=== PATIENT | female | born 1940 | race African-American/Black ===

== ENCOUNTER → 2016-06-18 | Outpatient (CLI) | payer OTHER, MEDICAID ==
[2016-01-15 11:55] VITALS: BP 128/69
[~2016-06-18] MED LIST: ASPI81TA2 PO; BACL10TA PO; BENZ100C2 PO; CYAN10002 PO; FLUT9.9S NS; LIPA1CAP14 PO; LISI-334 PO; MELO-150 PO; MONT10TA9 PO; OMEP20CA9 PO; PANT20TA2 PO; REGADENOSON 0.4 MG/5 ML DISP.SYRIN. IV ONE; VENTOLIN HFA18 GM INH
--- NOTE | 2016-06-18 15:04 | RAD ---
APPROVED REPORT Test Type: Pharmacological Stress Nurse/Tech: AVILA Story Test Indications: dyspnea, arm/leg numbness Cardiac History: See EMAR Medications: See EMAR Medical History: smoker 1-2 cigs/day Resting ECG: SR Resting Heart Rate: 72 bpm Resting Blood Pressure: 155/71mmHg Pretest Chest Pain: No chest pain Nurse/Tech Notes SR per monitor, S1S2, no CP or SOA Pharm. Details Pharmacologic stress testing was performed using 0.4mg per 5ml of regadenoson given intravenously ove r 7-10 seconds. Stress Symptoms No chest pain or symptoms. POST EXERCISE Reason for Termination: Infusion complete Max HR: 92 bpm Max Blood Pressure: 170/77mmHg Chest Pain: No. Arrhythmia: No. ST Change: No. INTERPRETATION Stress EKG Conclusion: No evidence of stress induced EKG changes. Baseline with lateral wall q-waves. Imaging Protocol IMAGE PROTOCOL: Rest Tc-99m/stress Tc-99m 1 day Rest: Stress: Viability: Radiopharm.Tc99m BdzgcmdpoWl65l Sestamibi Dose10.4mCi 33mCi Img Date 06/18/2016 06/18/2016 Inj-Img [id number]. 60min. Rest Admin Site:IV - Right AntecubitalAdministrator:Livia Shoemaker RT (R)(N) Stress Admin Site: IV - Right AntecubitalAdministrator: MELANIE Cali, ARRT (R)(N) STRESS DATA End Diast. Vol.67.0mlAv. Heart Rate78.0bpm End Syst. Vol.18.0mlCO Index BSA0.0L/min Myocardial Gfgr279.0gEject. Hlkncnxq45.0% Stress Rates Pk. Fill Rate3.41EDV/secLVtime Pk. Fill 231.92msec Pk. Empty Rate4.20ESV/secLVtime Pk. Afzqa679.07msec 03/05 Pk. Fill0.43EDV/sec Stress Scores Regional WT2.00Summed WT15.00 Regional WM0.00Summed WM1.00 LV Perfusion There is a large sized, severe in intensity inferolateral defect suggestive of prior infarct. There i s minimal kapil-infarct reversibility. Wall Motion Mild to moderate inferolateral hypokinesis. LV Perf. Quant 17 Seg. SSS11.00 17 Seg. SRS9.00 17 Seg. SDS3.00 Stress Defect Extent (% LAD)0.00Rest Defect Extent (% LAD)0.00Rev. Defect Extent (% LAD)0.00 Stress Defect Extent (% LCX) 57.50Rest Defect Extent (% LCX)58.80Rev. Defect Extent (% LCX)15.00 Stress Defect Extent (% RCA)16.70Rest Defect Extent (% RCA)4.40Rev. Defect Extent (% RCA)10.00 Stress Defect Extent (% ROSA)18.50Rest Defect Extent (% ROSA)15.20Rev. Defect Extent (% ROSA)5.90 Other Information Quality:Excellent Risk Assessment: Low-Moderate Risk Conclusion 1. No evidence of stress induced EKG changes. 2. Fixed inferolateral defect suggestive of prior infarct with minimal kapil-infarct reversibility 3. Normal EF at > 65% 4. Low to moderate risk study
--- NOTE | 2016-06-19 08:27 | CARD ---
APPROVED REPORT EXAM: Two-dimensional and M-mode echocardiogram with Doppler and color Doppler. Other Information Quality : GoodHR: 72bpm Rhythm : NSR INDICATION Dyspnea on exertion RISK FACTORS Hypertension Family History Smoking 2D DIMENSIONS RVDd2.5 (2.9-3.5cm)Left Atrium(2D)2.9 (1.6-4.0cm) IVSd0.9 (0.7-1.1cm)Aortic Root(2D)3.2 (2.0-3.7cm) LVDd4.5 (3.9-5.9cm)LVOT Diameter2.4 (1.8-2.4cm) PWd0.8 (0.7-1.1cm)LVDs3.7 (2.5-4.0cm) FS (%) 18.9 %SV36.6 ml LVEF(%)39.1 (>50%) Aortic Valve AoV Peak Can.118.4cm/sAoV VTI22.9cm AO Peak GR.5.6mmHgLVOT Peak Can.91.0cm/s AO Mean GR.3mmHgAVA (VMAX)3.56cm2 AI P 1/2 Dcco514eq Mitral Valve MV E Xeodntgx53.7cm/sMV E Peak Gr.3mmHg MV DECEL KKPH937bvON A Hcxpodpf10.0cm/s MV E Mean Gr.1mmHgE/A Ratio0.6 MV A Exsbklcx89zt Tricuspid Valve TR P. Hwyyigwn420dw/sTR Peak Gr.53mmHg Pulmonary Vein S1 Jyrvzqss26.2cm/sD2 Tetzziej23.4cm/s PVa hovweeyd31gpop LEFT VENTRICLE The left ventricle is normal size. There is normal left ventricular wall thickness. Left ventricle sy stolic function is low normal. The Ejection Fraction is 50-55%. There is normal LV segmental wall mot ion. Transmitral Doppler flow pattern is Grade I-abnormal relaxation pattern. No left ventricle throm bus noted on this study. RIGHT VENTRICLE The right ventricle is normal size. There is normal right ventricular wall thickness. The right ventr icular systolic function is normal. ATRIA The left atrium size is normal. The right atrium size is normal. The interatrial septum is intact wit h no evidence for an atrial septal defect or patent foramen ovale as noted on 2-D or Doppler imaging. AORTIC VALVE The aortic valve is thickened. The aortic valve is trileaflet. Doppler and Color Flow revealed mild a ortic regurgitation. There is no significant aortic valvular stenosis. MITRAL VALVE The mitral valve leaflets are thickened. There is no evidence of mitral valve prolapse. There is no m itral valve stenosis. Doppler and Color Flow revealed mild mitral regurgitation. TRICUSPID VALVE Doppler and Color Flow revealed mild tricuspid regurgitation. The pulmonary artery systolic pressure is estimated at 56 mmHg. There is moderate pulmonary hypertension. PULMONIC VALVE Doppler and Color Flow revealed mild pulmonic valvular regurgitation. There is no pulmonic valvular s tenosis. GREAT VESSELS The aortic root is normal in size. The ascending aorta is normal in size. The IVC is normal in size a nd collapses >50% with inspiration. PERICARDIAL EFFUSION There is no evidence of significant pericardial effusion. Critical Notification Critical Value: No <Conclusion> Left ventricle systolic function is low normal. The Ejection Fraction is 50-55%. There is normal LV segmental wall motion. Doppler and Color Flow revealed mild aortic regurgitation. Doppler and Color Flow revealed mild mitral regurgitation. Doppler and Color Flow revealed mild tricuspid regurgitation. The pulmonary artery systolic pressure is estimated at 56 mmHg. There is moderate pulmonary hypertension.
== END | disposition home or self-care (01) ==
LOC: NM 09:57
PROVIDERS: ATTEND Internal Medicine Cardiovascular Disease
DX: R06.09 Other forms of dyspnea (principal)
CPT/HCPCS: 78452; 93017; 93306; 96374; 96375; 96376; A9500; J2785

== ENCOUNTER → 2016-06-25 | Outpatient (CLI) | payer OTHER, MEDICAID ==
[2016-01-15 11:55] VITALS: BP 128/69
[~2016-06-25] MED LIST changes: -REGADENOSON 0.4 MG/5 ML DISP.SYRIN. IV ONE
--- NOTE | 2016-06-25 18:18 | RAD ---
APPROVED REPORT Patient Location: OUT-PATIENT Laterality:Bilateral Indications Bruit Risk Factors Smoking Doppler Spectral Velocity Analysis Right Left mCCA 50/10 cm/smCCA 58/10 cm/s ECA 95/ cm/sECA 125/ cm/s pICA 205/37 cm/spICA 300/48 cm/s Debi 244/33 cm/smICA 81/11 cm/s dICA 79/21 cm/sdICA 82/19 cm/s ICA/CCA 4.88ICA/CCA 5.14 Findings Pereira scale images of the bilateral carotid arterial bulbs, internal carotid and external carotid arianne chip reveals diffuse intimal hyperplasia of mild to moderate degree. There appears to be moderate art hroscopic plaque at the bilateral carotid bulbs extending into the internal carotid arteries. Spectral waveforms in the common carotid artery are within normal limits bilaterally. On the right, t he proximal and mid internal carotid artery mistreat elevated velocities of up to 244 cm/s. The MCA t o CCA ratios are elevated at greater than 4. On the left spectral waveforms demonstrate elevated peak systolic velocities are proximally 300 cm/s near the proximal ICA. Based on pereira scale images and co james flow there appears to be tortuosity of the carotid bulbs bilaterally but the degree of velocity e levation is higher than would be expected for tortuosity only. Bilateral antegrade vertebral velocities are noted. Critical Notification Critical Value: No <Conclusion> 1. Bilateral significant greater than 70% stenosis involving the proximal internal carotid artery. 2. Normal antegrade vertebral velocities.
--- NOTE | 2016-06-25 18:26 | RAD ---
APPROVED REPORT Patient Location: OUT-PATIENT Indications PAD VELOCITY AND DOPPLER WAVEFORM ANALYSIS RIGHT cm/secWaveformSeverity LEFT c m/secWaveformSeverity pCFA 165.1pCFA 273.6 Prof Fem Art. 186.3Prof Fem Art. 142.0 Fem Art Prox. 163.1Fem Art Prox. 108.2 Fem Art Mid. 72.0Fem Art Mid. 118.2 Fem Art Dist. 93.3Fem Art Dist. 77.5 Pop Art(Fossa) 69.1Pop Art(Fossa) 37.6 ZIPPER SETTER LOCKSTITCH Dist. 11.1PTA Dist. 51.2 Per Art Dist. 30.6Per Art Dist. 54.8 SHARA Dist. 63.6ATA Dist. 34.4 Findings On the right ellis scale images demonstrate significant atherosclerotic plaque of approximately 50%. V elocities are elevated at 165 cm/s. The plaque extends into the superficial femoral and profunda femo ris arteries. The mid and distal SFA are free of significant disease and the popliteal artery is slig htly tortuous but does not have any significant velocity acceleration or turbulence noted on color Do ppler. The right posterior tibial artery is not well identified. It is likely occluded. There is dimi nished flow in the anterior tibial and peroneal vessels but they appear to be patent with acceleratio n in velocity at the level of the dorsalis pedis suggestive of diffuse small vessel disease. On the left the proximal common femoral artery velocities are elevated and ellis scale images are also suggestive of plaque greater than 50%. Mild to moderate diffuse plaque is noted in the SFA and popli teal arteries of likely less than 50%. There is patent 3 vessel runoff below the knee with monophasic waveforms again suggestive of diffuse small vessel disease. Critical Notification Critical Value: No <Conclusion> 1. Suspicious for bilateral common femoral arterial disease of greater than 50%. 2. Probable right posterior tibial artery occlusion. 3. Two-vessel runoff to the right lower extremity and 3 vessel runoff to the left lower extremity wit h likely diffuse small vessel disease.
== END | disposition home or self-care (01) ==
LOC: US 11:55
PROVIDERS: ATTEND Internal Medicine Cardiovascular Disease
DX: I73.9 Peripheral vascular disease, unspecified (principal); R09.89 Other specified symptoms and signs involving the circulatory and respiratory systems
CPT/HCPCS: 93880; 93925

== ENCOUNTER 2016-07-01 07:34 | Inpatient (IN) | payer OTHER, MEDICAID ==
[2016-07-01] VITALS (19 sets, daily range): BP systolic 71–200; BP diastolic 42–100
[~2016-07-01] VITALS: Ht 154.9 cm; Wt 50.4 kg
[2016-07-01] MEDS: IV NORMAL SALINE 1000ML BAG 1,000 ML IV SCH (07:39)
[2016-07-01] MEDS ORDERED: IODIXANOL 320 MG/ML 100 ML VIAL. ONE ×2 (08:06→10:43)
[2016-07-01] MEDS ORDERED: LIDOCAINE 2% 20 ML VIAL. ONE ×2 (08:06→09:52)
[2016-07-01] MEDS ORDERED: TRAM50TA PO (08:08)
[2016-07-01] MEDS ORDERED: LIPA1CAP8 PO (08:08)
[2016-07-01] MEDS ORDERED: OMEG1CAP6 PO (08:08)
[2016-07-01] MEDS ORDERED: BUDE10.2 IH (08:08)
[2016-07-01] MEDS ORDERED: ASCO500T3 PO (08:08)
[2016-07-01 08:09] LABS: HEMATOCRIT 34.9 % (36.0-47.0); HEMOGLOBIN 11.5 g/dL (12.0-15.5); RED BLOOD COUNT 3.94 x10^6/uL (3.50-5.40); RED CELL DISTRIBUTION WIDTH 14.6 % (11.5-14.5); WHITE BLOOD COUNT 4.3 x10^3/uL (4.0-11.0)
[2016-07-01 08:21] LABS: CALCIUM 9.3 mg/dL (8.5-10.1); CREATININE 0.9 mg/dL (0.6-1.0); GFR 74.1; POTASSIUM 3.7 mmol/L (3.5-5.1); PROTHROMBIN TIME PATIENT 12.7 SEC (11.7-14.0)
[2016-07-01] MEDS ORDERED: MIDAZOLAM HCL/PF 2 MG/2 ML VIAL. ONE (09:55)
[2016-07-01] MEDS ORDERED: fentaNYL PF VIAL 100 MCG/2 ML VIAL ONE (09:56)
[2016-07-01] MEDS ORDERED: NITROGLYCERIN 200 MCG/2 ML SYRINGE FOR CATH/VASC LAB. ONE (10:01)
[2016-07-01] MEDS ORDERED: VERAPAMIL 5 MG/2 ML VIAL. ONE (10:01)
[2016-07-01] MEDS ORDERED: HEPARIN for IV BOLUS 10,000 UNIT/10 ML VIAL. ONE (10:01)
[2016-07-01] MEDS ORDERED: LIDOCAINE 2% 20 ML VIAL. IJ ONE (10:15)
[2016-07-01] MEDS ORDERED: MIDAZOLAM HCL/PF 2 MG/2 ML VIAL. IV ONE (10:15)
[2016-07-01] MEDS ORDERED: IODIXANOL 320 MG/ML 100 ML VIAL. IART ONE (10:15)
[2016-07-01] MEDS ORDERED: fentaNYL PF VIAL 100 MCG/2 ML VIAL IV ONE (10:15)
[2016-07-01] MEDS ORDERED: BIVALIRUDIN 250 MG VIAL. IV ONE ×2 (10:21→10:45)
[2016-07-01] MEDS ORDERED: CLOPIDOGREL BISULFATE 75 MG TABLET ONE (10:45)
[2016-07-01] MEDS ORDERED: ASPIRIN 325 MG TABLET ONE (10:45)
[2016-07-01] MEDS ORDERED: ASPIRIN 325 MG TABLET PO ONE (11:00)
[2016-07-01] MEDS ORDERED: CLOPIDOGREL BISULFATE 75 MG TABLET PO ONE (11:00)
--- NOTE | 2016-07-01 12:08 | CARD ---
APPROVED REPORT Procedure(s) performed: 1. Left heart catheterization, selective coronary angiography and left ventr iculography 2. Successful PCI/drug eluting stent placement to the obtuse marginal branch of left circumflex arianne ry INDICATION The indication(s) include : unstable angina . PROCEDURE NARRATIVE After explaining the risks, benefits and alternative options, informed consent was obtained from galina ent. Patient was brought to the cardiac Escalator Constructor and her right groin was prepped and draped in the us ual fashion. 10 mL of 2% lidocaine was infiltrated into the skin and subcutaneous tissues for local a nesthesia. Arterial access was obtained in the right common femoral artery and a 6 Malagasy sheath was inserted. 6 Malagasy JL4 and 6 Malagasy JR4 catheters were used to perform selective angiography of the l eft and right coronary arteries. 6 Malagasy pigtail catheter was used to perform left ventriculography. The same catheter was used to perform aortogram with runoff that revealed be reported separately. Th e following findings were noted. FINDINGS 1. Hemodynamics: Left ventricular end-diastolic pressure 10 mmHg. No pullback gradient across the a ortic valve. 2. Left ventriculography: Posterobasal wall akinesis with ejection fraction estimated at 55%. No si gnificant mitral regurgitation seen. 3. Coronary angiography: a. The left main coronary artery arose from the left sinus of Valsalva, gave rise to the left anteri or descending and left circumflex arteries and did not show any significant stenosis. b. The left anterior descending artery showed minimal luminal irregularities without any significant stenosis. c. The left circumflex artery showed 90% stenosis involving the second obtuse marginal branch. The p roximal to midsegment of the left circumflex artery is highly tortuous. d. The right coronary artery arose from the right sinus of Valsalva and showed long chronic and heav margie calcified occlusion involving proximal, mid and distal segments with reconstitution of the informatica developer ior descending and posterolateral branches from left to right collaterals. INTERVENTION The left main coronary artery was engaged with a 6 Malagasy XB 3.5 guide catheter. The proximal to mids egment of the left circumflex artery was highly tortuous as stated above and hence there was difficul ty passing the wire across this initially. Subsequently, with the help of backup support from a 6 Fito formerly [facility] guide liner catheter, the lesion in the second obtuse marginal branch was crossed with a 0.014 in ch [employer] pool water guidewire, predilated with a 2 x 8 mm trek balloon and treated successfully with a 2.5 x 8 mm Xience Alpine drug-eluting stent. Follow-up angiography showed resolution of the stenosi s to 0% with STEVE-3 distal flow. Patient tolerated the procedure well. Hemostasis in the right groin was achieved using Angio-Seal. There were no immediate complications. Conclusion 1. Two-vessel coronary artery disease 2. Successful PCI/drug eluting stent placement to the obtuse marginal branch of left circumflex arianne ry 3. Posterobasal wall akinesis with ejection fraction estimated at 55%. Recommendations 1. Aspirin 325 mg daily 2. Plavix 75 mg daily for preferably one year 3. Cardiovascular risk factor modification 4. The right coronary artery occlusion is long, heavily calcified and chronic and will be managed me dically.
[2016-07-01] MEDS ORDERED: hydrALAZINE 20 MG/ML VIAL. IVP PRN (13:00)
[2016-07-01] MEDS ORDERED: ASPIRIN ENTERIC COATED 325 MG TABLET.DR. PO SCH (13:00)
[2016-07-01] MEDS ORDERED: CLOPIDOGREL BISULFATE 75 MG TABLET PO SCH (13:00)
[2016-07-01] MEDS ORDERED: LISINOPRIL 10 MG TABLET PO SCH (13:00)
--- NOTE | 2016-07-01 13:04 | PDOC ---
MODERATE SEDATION ASSESSMENT RISKS/ALTERNATIVES Risks/Alternatives Risks and alternatives of this type of sedation and procedure discussed with: RISK/ALTERNATIVES: Patient H & P ON CHART H & P H & P on chart and reviewed for co-morbid conditions and appropriate labs. H&P ON CHART: Yes STATUS PREG STATUS ASSESSED: N/A MEDS/ALLERGIES REVIEWED Meds/Allergies Reviewed Medications and Allergies including time and route of recently administered narcotics and sedatives. MEDS/ALLERGIES REVIEWED: Yes ASA RATING ASA RATING: II AIRWAY ASSESSMENT Airway Assessment Airway patency, oral function limitations, presence of caps, crowns, dentures, partials, and ability to extend neck assessed. AIRWAY ASSESSMENT: Yes MALLAMPATI SCORE MALLAMPATI SCORE: II PRE-SEDATION ASSESSMENT PRE-SEDATION ASSESSMENT: Yes DIGNA RUSSO MD July 01, 2016 13:03
[2016-07-01] MEDS: METOPROLOL SUCC 24HR ER 25 MG TAB.ER.24H. PO SCH (13:08)
--- NOTE | 2016-07-01 13:45 | CARD ---
APPROVED REPORT Patient StatusOUT-PATIENT Comfort Station Attendant: Omaira Hodge RT (R) Procedure(s) performed: Aortogram with bilateral lower extremity runoff INDICATION FOR PROCEDURE The indication(s) include : Peripheral vascular disease with claudication. PROCEDURE NARRATIVE After explaining the risks, benefits and alternative options, informed consent was obtained from lida ent. Patient was brought to the cardiac Podiatric Physician and her right groin was prepped and draped in the us ual fashion. 10 mL of 2% lidocaine was infiltrated into the skin and subcutaneous tissues for local a nesthesia. Arterial access was obtained in the right common femoral artery and 6 Israeli sheath was in serted. Diagnostic coronary angiography was performed that would be reported separately. Subsequently , 6 Israeli pigtail catheter was used to perform aortogram with bilateral lower extremity runoff. Lida ent tolerated the procedure well. Hemostasis was achieved using Angio-Seal. There were no immediate c omplications. FINDINGS 1. 30% stenosis involving the descending aorta in the infrarenal segment. 2. 30% stenosis involving left common iliac artery. No significant stenosis involving the right comm on iliac and bilateral external iliac arteries. 3. No significant stenosis involving bilateral common femoral arteries. 4. 30% stenoses involving the mid and distal segments of the left superficial femoral artery. No sig nificant stenosis involving the right superficial femoral artery and bilateral popliteal arteries. 5. There is two vessel runoff below the knee bilaterally with complete occlusion of bilateral buffing machine operator ior tibial arteries. The left anterior tibial artery showed moderate diffuse disease in the proximal segment. Conclusion Elrlm-peu-tmoh peripheral vascular disease as described above. Patient did not have any major vascula r stenoses needing intervention. Recommendations Cardiovascular risk factor modification and regular exercise regimen.
[2016-07-01] MEDS: IV 1/2 NORMAL SALINE 1,000 ML IV SCH (15:31)
[2016-07-01] MEDS ORDERED: NITROGLYCERIN SUBLINGUAL 0.4 MG BOTTLE OF 25. SL PRN (15:45)
[2016-07-01] MEDS ORDERED: ACETAMINOPHEN 325 MG TABLET. PO PRN (15:45)
[2016-07-01] MEDS ORDERED: TRAMADOL 50 MG TABLET. PO PRN (19:15)
[2016-07-01] MEDS ORDERED: ATORVASTATIN CALCIUM 40 MG TABLET. PO SCH (21:00)
[2016-07-02] MEDS: IV NORMAL SALINE 1000ML BAG 1,000 ML IV SCH (01:43)
[2016-07-02 03:00] VITALS: BP 116/59
[2016-07-02] MEDS: IV 1/2 NORMAL SALINE 1,000 ML IV SCH (04:51)
[2016-07-02 05:12] LABS: CHOLESTEROL/HDL RATIO 2.2
--- NOTE | 2016-07-02 05:17 | ACF ---
Admission Forms Criteria CARDIOLOGY GRG Clinical Indications for Admission to Inpatient Care ( Place 'X' for any and all applicable criteria): Hospital admission is needed for appropriate care of the patient because of ANY ONE of the following (1): [ ] I. Hemodynamic instability as indicated by ALL of the following (1)(2)(3) (4)(5) [ ]a) Vital signs or other findings not as expected for chronic patient condition or baseline [ ]b) Instability indicated by ANY ONE of the following: [ ]i) Hypotension [ ]ii) Symptomatic Tachycardia unresponsive to treatment ( e.g., analgesia, fluids, sedation as indicated) [ ]iii) Inadequate perfusion indicated by ANY ONE of the following: [ ] 1) Lactic acidosis (> 2 mmol/L) [ ] 2) New abnormal capillary refill (> 3 seconds) [ ] 3) Reduced urine output [ ] 4) New altered mental status [ ]iv) Orthostatic vital sign changes unresponsive to treatment (e.g., fluids) [ ]v) IV inotropic or vasopressor medication required to maintain adequate blood pressure or perfusion [ ] II. Severe heart failure as indicated by ANY ONE of the following(17)(18) [ ]a) Respiratory distress [ ]b) Hypotension [ ]c) Anasarca (refractory to outpatient therapy) [ ]d) Cardiac arrhythmias of immediate concern [ ]e) Myocardial ischemia [ ] III. Cardiac arrhythmias or findings of immediate concern indicated by ANY ONE of the following (19)(20): [ ] a) Heart rhythms that are inherently dangerous or unstable indicated by ANY ONE of the following (21)(22)(23): [ ] i) Resuscitated ventricular fibrillation or cardiac arrest [ ] ii) Ventricular escape rhythm [ ] iii) Sustained ventricular tachycardia (30 seconds or more of ventricular rhythm at greater than 100 beats per minute) [ ] iv) Nonsustained ventricular tachycardia and ANY ONE of the following: [ ] 1) Suspected cardiac ischemia as cause or consequence of ventricular tachycardia [ ] 2) In setting of acute myocarditis [ ] b) Unstable cardiac conduction defects indicated by ANY ONE of the following(23)(24)(25) [ ] i) Type II second-degree atrioventricular block [ ]ii) Third-degree atrioventricular block [ ]iii) New-onset left bundle branch block with suspected myocardial ischemia [ ]c) Any heart rhythm and ANY ONE of the following (21)(22)(26)(27) (28) [ ] i) Continuous long-term ECG monitoring needed (e.g., initiation of drug requiring monitoring for more than 24 hours) [ ] ii) Patient has automatic implanted cardioverter defibrillator that is repeatedly firing, malfunctioning, or in need of immediate adjustment of settings beyond the scope of ambulatory or observation care [ ]d) Heart rhythms of concern due to ANY ONE of the following: [ ] i) Hypotension [ ] ii) Respiratory distress [ ] iii) Association with other significant symptoms (e.g., bradycardia with syncope or ongoing dizziness, supraventricular tachycardia with chest pain (14)(15)(17) [ ] IV. Monitoring for cardiac contusion beyond the scope of observation care needed [A](30)(31)(32) [ ] V. Surgical or device complication (e.g., valve replacement complication , pacemaker dysfunction) (35)(41)(44)(45)(46) [ ] . Inpatient palliative care needed. [B](49) Also use Inpatient Palliative Care Criteria [ ] VII. Nonbacterial thrombotic (marantic) endocarditis (36)(43)(47)(48) [X] VIII. Cardiology condition, symptom, or finding for which emergency and observation care has failed or are not considered appropriate. [ ] IX. Acute valvular disease requiring inpatient as indicated by ANY ONE of the following (41) [ ]a) Acute valvular regurgitation (42) [ ]b) Noninfectious valvulitis (43) [ ]c) Obstructive valve thrombosis [ ]d) Paravalvular leak [ ]e) Other significant valvular disorder remaining after emergency or observation level of care (as appropriate) [ ]X. Pericardial disease requiring inpatient treatment as indicated by ANY ONE of the following (33)(34)(35)(36)(37) [ ]a) Suspected tamponade (38)(39)(40) [ ]b) Hemopericardium [ ]c) Other significant pericardial disorder remaining after emergency or observation level of care (as appropriate) [ ] XI. Cardiac ischemia beyond scope of emergency and observation care. [ ] XII. Hypertension requiring inpatient treatment as indicated by ANY ONE of the following (6)(7)(8) [ ]a) SBP greater than 220 mm Hg or DBP greater than 120 mmHg despite treatment [ ]b) SBP greater than 140 mm Hg or DBP greater than 100 mm Hg with evidence of acute end organ damage as indicated by ANY ONE of the following [ ] i) Encephalopathy [ ] ii) Acute renal failure as indicated by new onset of ANY ONE of the following (9)(10)(11)(12)(13) [ ]1) 3-fold rise in serum creatinine from baseline [ ]2) Serum creatinine greater than 4 mg/dL ( 354 micromoles/L) with acute rise greater than 0.5 mg/dL (44.2 micromoles/L) [ ]3) Reduction of more than 75% in estimated glomerular filtration rate from baseline [ ]4) Estimated glomerular filtration rate less than 35 mL/min/1.73m2 (0.59 mL/sec/1.73m2) in child up to 18 years of age [ ]5) Cessation of urine output indicated by ALL of the following [ ]A. Adequate volume status [ ]B. Inadequate urine output as indicated by ANY ONE of the following [ ]a. Urine output less than 0.3 mL/kg/hr for 24 hours [ ]b. Anuria (urine output less than 0.1 mL/kg/hr) for 12 hours [ ] iii) Aortic dissection [ ] iv) Myocardial Ischemia [ ] v) Left ventricular heart failure [ ]vi) Retinal Hemorrhage [ ]vii) Other significant finding [ ]c) Hypertension in child requiring inpatient treatment as indicated by ALL of the following(14)(15)(16) [ ] i) Outpatient treatment not effective, not available, or not appropriate [ ]ii) SBP or DBP greater than 95th percentile for age [ ]iii) Evidence of acute end organ damage as indicated by ANY ONE of the following [ ]1) Altered mental status [ ]2) Acute renal failure as indicated by new onset of ANY ONE of the following(9)(10)(11)(12)(13) [ ]A. 3-fold rise in serum creatinine from baseline [ ]B. Serum creatinine greater than 4 mg/dL (354 micromoles/L) with acute rise greater than 0.5 mg/dL (44.2 micromoles/L) [ ]C. Reduction of more than 75% in estimated glomerular filtration rate from baseline [ ]D. Estimated glomerular filtration rate less than 35 mL/min/1.73m2 (0.59 mL/sec/1.73m2) in child up to 18 years of age [ ]E. Cessation of urine output indicated by ALL of the following [ ]a. Adequate volume status [ ]b. Inadequate urine output as indicated by ANY ONE of the following [ ]i) Urine output less than 0.3 mL/kg/hr for 24 hours [ ]ii) Anuria ( urine output less than 0.1 mL/kg/hr) for 12 hours [ ]3) Severe headache [ ]4) Visual disturbance [ ]5) Retinal hemorrhage [ ]6) Other significant finding [ ]XIII. Complications of transplanted heart indicated by ANY ONE of the following(61): [ ]a) Acute graft rejection requiring inpatient management (eg, intravenous immunosuppression)(62)(63) [ ]b) Acute graft heart failure indicated by ANY ONE of the following(64): [ ]i) Hemodynamic instability [ ]ii) Cardiac arrhythmias of immediate concern [ ]iii) Pulmonary edema that is very severe (eg, mechanical ventilation needed, imminent or likely, need for 100% oxygen to keep oxygen saturation above 90%) [ ]iv) Pulmonary edema that is persistent as indicated by ALL of the following: [ ]1) New need for oxygen therapy to keep oxygen saturation above 90% (or increased FiO2 need from baseline) [ ]2) Has not improved sufficiently with emergency department or observation care IV diuretics or other heart failure treatments[E] [ ]v) Altered mental status that is severe or persistent [ ]vi) Increased creatinine (new on laboratory test) with reduction of more than 50% in estimated glomerular filtration rate from baseline [ ]vii) Progressively (ongoing) rising creatinine (known from past laboratory test) with reduction of more than 25% in estimated glomerular filtration rate from baseline [ ]viii) Acute renal failure [ ]ix) Acute peripheral ischemia (eg, examination shows pulseless, cool, mottled, or cyanotic extremity) [ ]x) Pulmonary artery catheter monitoring needed [ ]xi) Other sign or symptom of heart failure requiring inpatient treatment (ie, too severe or not responsive to outpatient and observation care treatment) [ ]c) Infection requiring inpatient management (eg, Hemodynamic instability, need for intravenous antimicrobial treatment)(66)(67)(68)(69)(70) [ ]d) Cardiac allograft vasculopathy requiring inpatient management ( eg evidence of cardiac ischemia)(71) [ ]e) Other complication of transplanted heart (eg, stroke, severe pulmonary hypertension, severe valvular dysfunction) requiring inpatient management(72) The original [facility] content created by [facility] has been revised. The portions of the content which have been revised are identified through the use of italic text or in bold, and [facility] has neither reviewed nor approved the modified material. All other unmodified content is copyright [facility]. Please see references footnoted in the original [facility] edition 2016 Admission Criteria Met?: Yes DILLON BRYANT July 02, 2016 05:17
[2016-07-02 07:00] VITALS: BP 129/59
[2016-07-02] MEDS ORDERED: ASPIRIN ENTERIC COATED 325 MG TABLET.DR. PO SCH (08:00)
[2016-07-02] MEDS ORDERED: CLOPIDOGREL BISULFATE 75 MG TABLET PO SCH (08:00)
[2016-07-02] MEDS: METOPROLOL SUCC 24HR ER 25 MG TAB.ER.24H. PO SCH (08:56)
[2016-07-02 11:00] VITALS: BP 142/42
[2016-07-02] MEDS ORDERED: ASPI325T11 PO (11:20)
[2016-07-02] MEDS ORDERED: METO25TA9 PO (11:20)
[2016-07-02] MEDS ORDERED: ATOR40TA PO (11:20)
[2016-07-02] MEDS ORDERED: CLOP75TA PO (11:20)
--- NOTE | 2016-07-02 15:14 | PDOC3 ---
Discharge Summary Visit Information Date of Admission: July 01, 2016 Date of Discharge: July 02, 2016 Admitting Diagnosis Comment: Dyspnea Final Diagnosis CAD Brief Hospital Course Allergies Allergies Coded Allergies Type Severity Reaction Last Updated Verified lisinopril Allergy Severe Swelling 07/01/16 Yes Penicillins Allergy Intermediate 01/15/16 Yes codeine Allergy Intermediate 01/15/16 Yes Vital Signs Vital Signs Date Time Temp Pulse Resp B/P Pulse Ox O2 Delivery O2 Flow Rate FiO2 07/02/16 11:00 98.1 71 18 142/42 93 Room Air 98.1 07/01/16 12:48 2.0 Lab Results Laboratory Tests Test 07/01/16 07:59 07/02/16 03:00 White Blood Count 4.3x10^3/uL (4.0-11.0) Red Blood Count 3.94x10^6/uL (3.50-5.40) Hemoglobin 11.5g/dL (12.0-15.5) Hematocrit 34.9% (36.0-47.0) Mean Corpuscular Volume 89fL (79-100) Mean Corpuscular Hemoglobin 29pg (25-35) Mean Corpuscular Hemoglobin Concent 33g/dL (31-37) Red Cell Distribution Width 14.6% (11.5-14.5) Platelet Count 314x10^3/uL (140-400) Prothrombin Time 12.7SEC (11.7-14.0) Prothromb Time International Ratio 1.0 (0.8-1.1) Sodium Level 131mmol/L (136-145) Potassium Level 3.7mmol/L (3.5-5.1) Chloride Level 95mmol/L (98-107) Carbon Dioxide Level 28mmol/L (21-32) Anion Gap 8 (6-14) Blood Urea Nitrogen 10mg/dL (7-20) Creatinine 0.9mg/dL (0.6-1.0) Estimated GFR (Cockcroft-Gault) 74.1 Glucose Level 102mg/dL (70-99) Calcium Level 9.3mg/dL (8.5-10.1) Triglycerides Level 58mg/dL (0-150) Cholesterol Level 228mg/dL (0-200) LDL Cholesterol, Calculated 111mg/dL (0-100) VLDL Cholesterol, Calculated 12mg/dL (0-40) Non-HDL Cholesterol Calculated 123mg/dL (0-129) HDL Cholesterol 105mg/dL (40-60) Cholesterol/HDL Ratio 2.2 Laboratory Tests Test 07/02/16 03:00 Triglycerides Level 58mg/dL (0-150) Cholesterol Level 228mg/dL (0-200) LDL Cholesterol, Calculated 111mg/dL (0-100) VLDL Cholesterol, Calculated 12mg/dL (0-40) Non-HDL Cholesterol Calculated 123mg/dL (0-129) HDL Cholesterol 105mg/dL (40-60) Cholesterol/HDL Ratio 2.2 Brief Hospital Course Ms. Hackett is a 76 old female who presented to our office with complaints of dyspnea upon exertion. Patient underwent 2-D that revealed normal LV function and MPI, which revealed a fixed inferolateral defect suggestive of prior infarct with minimal kapil-infarct reversibility. Due to significant symptomatic dyspnea, cardiac catheterization was recommended for more definitive evaluation. Risks, benefits, and alternatives were explained and she was agreeable. Left heart catheterization, selective coronary angiography and left ventriculography was performed, which revealed two-vessel disease. Patient underwent successful PCI/drug eluting stent placement to the obtuse marginal branch of left circumflex artery. Patient additionally underwent aortogram with bilateral lower extremity runoff, which reveal mild non-obstructive below-the- knee peripheral vascular disease. Arteriotomy site DCI with bilateral LE neurovascular status intact. Did well overnight without complications. No significant rhythm ectopies overnight on telemetry. Ambulatory without difficulty. No CP or SOA. Lungs CTA. She is begin DAPT with ASA 325mg and Plavix 75mg. No IVETTE/ARB with history of angioedema. Referred to cardiac rehab. Post cath instructions have also been reviewed. History of hypertension and COPD , which are well-controlled. Left carotid bruit noted with carotid duplex scan with 70% bilateral internal carotid artery stenosis. No TIA/CVA symptoms. Will schedule for CTA of the neck for further evaluation. Patient to follow up in our office with Dr. Cruz in 4 weeks. Discharge Information Condition at Discharge: Improved Follow Up: Weeks (4) Disposition/Orders: D/C to Home Scheduled Albuterol Sulfate (Ventolin Hfa Inhaler) 2 PUFF INH QID (Reported) Ascorbic Acid (Ascorbic Acid) 500 MG PO DAILY (Reported) Aspirin (Aspirin Ec) 1 TAB PO DAILY Atorvastatin Calcium (Lipitor) 40 TAB PO QHS Budesonide/Formoterol Fumarate (Symbicort 160-4.5 Mcg Inhaler) 2 PUFF IH BID ( Reported) Clopidogrel Bisulfate (Clopidogrel) 1 TAB PO DAILY Lipase/Protease/Amylase (Creon Dr 36,000 Units Capsule) 1 EACH PO TID (Reported ) Metoprolol Succinate (Metoprolol Succinate ( Xl )) 1 TAB PO DAILY [place]-3 Fatty Acids/Fish Oil (Fish Oil 1,000 Mg Capsule) 1 EACH PO BID (Reported ) Tramadol Hcl (Tramadol Hcl) 1 TAB PO PRN Q6HRS (Reported) Discontinued Medications Aspirin (Aspirin) 81 MG PO (Reported) Baclofen (Baclofen) 10 MG PO QID (Reported) Benzonatate (Benzonatate) 100 MG PO TID PRN PRN COUGH (Reported) Cyanocobalamin (Vitamin B-12) (Cyanocobalamin Injection) 2,000 MCG PO DAILY ( Reported) Fluticasone Propionate (Flonase Allergy Relief) 2 SPRAYS NS DAILY (Reported) Lipase/Protease/Amylase (Zenpep Dr 20,000 Units Capsule) 1 EACH PO (Reported) Lisinopril (Lisinopril) 20 MG PO DAILY (Reported) Meloxicam (Meloxicam) 15 MG PO DAILY PRN PRN PAIN (Reported) Omeprazole (Omeprazole) 1 CAP PO DAILY (Reported) Pantoprazole Sodium (Protonix) 1 TAB PO DAILY (Reported) Patient Instructions Patient Instructions GENERAL INSTRUCTIONS: 1. Your dressing should be removed prior to leaving the hospital. 2. It is OK to shower the day after your procedure. 3. If you received stents, be sure to carry your stent information card with you in your wallet/purse at all times. 4. Call the office immediately at [phone] if you notice any fever or if there is redness, worsening tenderness/pain, increased bruising, or drainage from the puncture site. 5. Should you have bleeding from the site, lie down immediately & put pressure on the site. The pressure should be hard enough to stop the bleeding. Have the nearest person call 911. DO NOT try to drive to the ER with active bleeding. 6. If you notice a change in color, coolness to touch, or loss of feeling in the affected extremity, come to the emergency room. Please have someone drive you or call 911 if no one is available. DO NOT drive yourself. 7. If you normally take glucophage (metformin), please do not take this medicine for 48 hours following your procedure. 8. DO NOT STOP TAKING YOUR PLAVIX OR ASPIRIN UNLESS IT IS CLEARED BY A WORK ENVIRONMENT SAFETY INSPECTOR OF YOUR MORTGAGE LOAN COUNSELOR AT OUR OFFICE. 9. QUIT SMOKING: the [place] [employer], [place] [employer], & [place] [employer] have cessation resources available on their websites 10. Please have someone available to drive you home from the hospital as you may be limited by sedation medications given during the procedure. Femoral (Groin) access: 1. Do no lifting, pushing, pulling, bending, stooping, or recurrent stair climbing for 3 days following your procedure. 2. Once past the first 3 days, do not do any HEAVY exertion or lifting for one week following the procedure. No gym workouts, running, lifting greater than a gallon of milk, etc 3. Do not submerge in bath or pool for one week. OK to drive 3 days following your procedure, but if going long distance, do not go alone & take hourly breaks to get out of car and walk around. Radial Artery (Wrist) access: 1. No pushing, pulling, lifting, typing, or anything that requires repetitive use/movement of the affected wrist for 3 days following your procedure. 2. OK to drive the day following your procedure. (This is because of effects of sedating medications.) Call the office at [phone] for any questions or concerns. RADHA PACE APRN July 02, 2016 15:14
== END 2016-07-02 13:30 | disposition home or self-care (01) | DRG 247 ==
LOC: CCL 07:34 → 2 NORTH 10:38
PROVIDERS: ADMIT Internal Medicine Cardiovascular Disease; ATTEND Internal Medicine Cardiovascular Disease
PROC: 027034Z Dilation of Coronary Artery, One Artery with Drug-eluting Intraluminal Device, Percutaneous Approach (ICD-10-PCS; principal; 2016-07-01)
PROC: 4A023N7 Measurement of Cardiac Sampling and Pressure, Left Heart, Percutaneous Approach (ICD-10-PCS; 2016-07-01)
PROC: B2151ZZ Fluoroscopy of Left Heart using Low Osmolar Contrast (ICD-10-PCS; 2016-07-01)
PROC: B2111ZZ Fluoroscopy of Multiple Coronary Arteries using Low Osmolar Contrast (ICD-10-PCS; 2016-07-01)
DX: I25.110 Atherosclerotic heart disease of native coronary artery with unstable angina pectoris (principal); I10 Essential (primary) hypertension; I65.23 Occlusion and stenosis of bilateral carotid arteries; I73.9 Peripheral vascular disease, unspecified; J44.9 Chronic obstructive pulmonary disease, unspecified; Z88.6 Allergy status to analgesic agent; Z88.0 Allergy status to penicillin; Z88.8 Allergy status to other drugs, medicaments and biological substances
CPT/HCPCS: 36415; 75630; 80048; 80061; 85027; 85610; 92928; 93458; C1725; C1769; C1771; C1874; C1887; C1892; G0269; J0360; J0583; J2250; J3010; J7030

== ENCOUNTER → 2016-08-16 | Outpatient (CLI) | payer OTHER, MEDICAID ==
[~2016-08-16] MED LIST changes: +ASCO500T3 PO; +ASPI-630 PO; +ASPI325T11 PO; -ASPI81TA2 PO; +ATOR40TA PO; +BENZ100C15 PO; -BENZ100C2 PO; +BUDE10.2 IH; +CLOP75TA PO; +IOHEXOL 300 MG/ML 75 ML VIAL IV ONE; +LIPA1CAP8 PO; -MELO-150 PO; +MELO15TA23 PO; +METO25TA9 PO; +OMEG1CAP6 PO; +TRAM50TA PO
--- NOTE | 2016-08-16 12:52 | RAD ---
CTA of the neck with contrast 08/16/2016 Clinical history: Left carotid bruit. Bilateral carotid stenosis seen on ultrasound. Technique: After the intravenous administration of 75 cc of Omnipaque 300, contiguous, 0.625 mm axial sections were obtained through the upper chest, and neck. 3D MIP and volume rendered 3D reconstructed images were obtained. One or more of the following individualized dose reduction techniques were utilized for this study: 1. Automated exposure control. 2. Adjustment of the mA and/or kV according to patient size. 3. Use of iterative reconstruction technique. Stenosis calculations for CTA are based upon the NASCET methodology. Findings: Comparison is made to a carotid ultrasound dated 06/25/2016. Moderate atherosclerotic plaque formation is seen involving the thoracic aortic arch and its branches. The origins of the brachiocephalic artery, left common carotid artery and left subclavian artery are patent. The origins of the right common carotid artery and both vertebral arteries are patent. Mild to moderate atheromatous/atherosclerotic plaque formation is seen scattered throughout the left common carotid artery. No area of stenosis or occlusion is seen. The right common carotid artery is patent. Moderate to severe atherosclerotic plaque formation is seen involving both carotid bifurcations and proximal internal carotid arteries, left greater than right. A 70% stenosis (using NASCET criteria) is seen involving the right carotid bulb at the level of the carotid bifurcation. This measures 4 mm in length. A 75% stenosis is seen involving the left carotid bulb at the level of the left carotid bifurcation. This measures 3 mm in length. The internal carotid arteries within the neck are tortuous but patent. The left vertebral artery is dominant. Both vertebral arteries demonstrate normal antegrade flow. Moderate to severe bullous emphysematous changes are seen involving both upper lobes. No acute soft tissue abnormality is seen involving the neck. Degenerative changes are seen involving the uncovertebral and facet joints throughout the cervical spine. Impression: Moderate to severe atherosclerotic plaque formation is seen involving both carotid bifurcations and proximal internal carotid arteries, left greater than right. A 70% stenosis is seen involving the right carotid bifurcation. A 75% stenosis is seen involving the left carotid bifurcation.
== END | disposition home or self-care (01) ==
LOC: CT 09:01
PROVIDERS: ATTEND Internal Medicine Cardiovascular Disease
DX: R09.89 Other specified symptoms and signs involving the circulatory and respiratory systems (principal)
CPT/HCPCS: 70498; Q9967

== ENCOUNTER 2017-01-18 20:17 | Inpatient (IN) | payer OTHER, MEDICAID ==
[~2017-01-18] VITALS: Ht 152.4 cm; Wt 50.4 kg
[~2017-01-18 20:17] MED LIST changes: +BENZ-8 PO; -BENZ100C15 PO; -IOHEXOL 300 MG/ML 75 ML VIAL IV ONE; +LISI40TA PO; +METO-239 PO; -METO25TA9 PO
[2017-01-18 20:51] LABS: BASO % 1 % (0-3); EOS % 1 % (0-3); HEMATOCRIT 30.3 % (36.0-47.0); HEMOGLOBIN 10.2 g/dL (12.0-15.5); LYMPH # 2.1 x10^3/uL (1.0-4.8); LYMPH % 45 % (24-48); MEAN CORPUSCULAR HEMOGLOBIN 29 pg (25-35); MEAN CORPUSCULAR HGB CONC 34 g/dL (31-37); MEAN CORPUSCULAR VOLUME 86 fL (79-100); MONO % 12 % (0-9); NEUT % 41 % (31-73); PLATELET COUNT 258 x10^3/uL (140-400); RED BLOOD COUNT 3.53 x10^6/uL (3.50-5.40); RED CELL DISTRIBUTION WIDTH 15.9 % (11.5-14.5); WHITE BLOOD COUNT 4.7 x10^3/uL (4.0-11.0)
[2017-01-18 21:03] LABS: CALCIUM 9.1 mg/dL (8.5-10.1); GFR 65.6; POTASSIUM 4.3 mmol/L (3.5-5.1)
[2017-01-18 21:09] LABS: ALBUMIN 3.9 g/dL (3.4-5.0); ALBUMIN/GLOBULIN RATIO 1.1 (1.0-1.7); TOTAL BILIRUBIN 0.3 mg/dL (0.2-1.0); TOTAL PROTEIN 7.5 g/dL (6.4-8.2)
--- NOTE | 2017-01-18 21:10 | PHYS DOC ---
Past Medical History Past Medical History: Asthma, Hypertension Past Surgical History: Other Additional Past Surgical Histo: CARDIAC STENT Alcohol Use: Occasionally Drug Use: None Adult General Chief Complaint Chief Complaint: facial swelling HPI HPI Patient is a 76 year old female brought to the ED by a family member with the complaint of swelling of her face. This began at about noon today. Since it began it has gotten worse but over the past 1-1/2 hours it has not gotten any worse. The patient has never had this before. She denies swelling of her tongue. She denies any trouble swallowing or breathing. She denies swelling anywhere else other than her face. The patient has taken lisinopril for a long time for hypertension. Her last dose was this morning. The patient called her daughter who brought her some Benadryl which she did take. The daughter first saw her at about 6:50 PM and states that since she first saw the patient, her swelling has not worsened or improved. PCP Dr Pringle Review of Systems Review of Systems Constitutional: Denies fever or chills [] HENT: Denies nasal congestion or tongue swelling or difficulty swallowing Respiratory: Denies cough or shortness of breath although she said she recently had a touch of pneumonia Cardiovascular: Denies chest pain GI: Denies Nausea or vomiting : Denies dysuria or hematuria [] Integument: Denies rash or skin lesions other than facial swelling as described Neurologic: Denies headache, focal weakness or sensory changes [] All other systems were reviewed and found to be within normal limits, except as documented in this note. Allergies Allergies Allergies Coded Allergies Type Severity Reaction Last Updated Verified lisinopril Allergy Severe Swelling 11/05/16 Yes Penicillins Allergy Intermediate Hives 11/05/16 Yes codeine Allergy Intermediate Hives, ULTRAM at home 11/05/16 Yes Physical Exam Physical Exam Constitutional: Well developed, well nourished, no acute distress, non-toxic appearance. Alert, mentating normally, normal vital signs. Patient is alert with no dyspnea and able to speak without difficulty. HENT: Normocephalic, atraumatic, bilateral external ears normal, nose normal. Patient has significant facial swelling that extends from below the nose, including upper and lower lips, cheeks, chin, and extends to under the chin where the chin meets the neck. There is no swelling of the neck itself. Trachea is midline. There is no swelling of the tongue. Eyes: conjunctiva normal, no discharge. [] Neck: Normal range of motion, no stridor. [] Cardiovascular:Heart rate regular rhythm, no murmur [] Lungs & Thorax: Bilateral breath sounds clear to auscultation [] Skin: Warm, dry, no erythema, no rash. No urticaria or other skin changes. Extremities: No tenderness, no cyanosis, no clubbing, ROM intact, no edema. [] Neurologic: Alert and oriented X 3, normal motor function, no focal deficits noted. [] Current Patient Data Vital Signs Vital Signs Date Time Temp Pulse Resp B/P (MAP) Pulse Ox O2 Delivery O2 Flow Rate FiO2 01/18/17 21:23 72 131/71 (91) 97 Room Air 01/18/17 20:33 98.4 18 98.4 Lab Values Laboratory Tests Test 01/18/17 20:25 White Blood Count 4.7 x10^3/uL (4.0-11.0) Red Blood Count 3.53 x10^6/uL (3.50-5.40) Hemoglobin 10.2 g/dL (12.0-15.5) L Hematocrit 30.3 % (36.0-47.0) L Mean Corpuscular Volume 86 fL (79-100) Mean Corpuscular Hemoglobin 29 pg (25-35) Mean Corpuscular Hemoglobin Concent 34 g/dL (31-37) Red Cell Distribution Width 15.9 % (11.5-14.5) H Platelet Count 258 x10^3/uL (140-400) Neutrophils (%) (Auto) 41 % (31-73) Lymphocytes (%) (Auto) 45 % (24-48) Monocytes (%) (Auto) 12 % (0-9) H Eosinophils (%) (Auto) 1 % (0-3) Basophils (%) (Auto) 1 % (0-3) Neutrophils # (Auto) 1.9 x10^3uL (1.8-7.7) Lymphocytes # (Auto) 2.1 x10^3/uL (1.0-4.8) Monocytes # (Auto) 0.6 x10^3/uL (0.0-1.1) Eosinophils # (Auto) 0.0 x10^3/uL (0.0-0.7) Basophils # (Auto) 0.0 x10^3/uL (0.0-0.2) Sodium Level 122 mmol/L (136-145) L Potassium Level 4.3 mmol/L (3.5-5.1) Chloride Level 88 mmol/L (98-107) L Carbon Dioxide Level 26 mmol/L (21-32) Anion Gap 8 (6-14) Blood Urea Nitrogen 11 mg/dL (7-20) Creatinine 1.0 mg/dL (0.6-1.0) Estimated GFR (Cockcroft-Gault) 65.6 BUN/Creatinine Ratio 11 (6-20) Glucose Level 108 mg/dL (70-99) H Calcium Level 9.1 mg/dL (8.5-10.1) Total Bilirubin 0.3 mg/dL (0.2-1.0) Aspartate Amino Transferase (AST) 25 U/L (15-37) Alanine Aminotransferase (ALT) 18 U/L (14-59) Alkaline Phosphatase 91 U/L (46-116) Total Protein 7.5 g/dL (6.4-8.2) Albumin 3.9 g/dL (3.4-5.0) Albumin/Globulin Ratio 1.1 (1.0-1.7) Laboratory Tests 01/18/17 20:25 Laboratory Tests 01/18/17 20:25 EKG EKG [] Radiology/Procedures Radiology/Procedures [] Course & Med Decision Making Course & Med Decision Making Pertinent Labs and Imaging studies reviewed. (See chart for details) 76-year-old female who takes lisinopril for hypertension presents with significant swelling of the face including upper and lower lips which has been going on for about 8-1/2 hours. It has not changed in the last 1-1/2 hours per the patient's daughter. The patient appears to have angioedema secondary to IVETTE inhibitor. At this time her airway is not compromised but she does have significant swelling of the upper and lower lips and I feel she should be hospitalized for close observation. I discussed this with the patient and her daughter who are agreeable to that plan. I discussed the case with Dr. Pringle who will admit the patient. I wrote bridge orders. [] Dragon Disclaimer Dragon Disclaimer This electronic medical record was generated, in whole or in part, using a voice recognition dictation system. Departure Departure Impression: Primary Impression: Angioedema due to angiotensin converting enzyme inhibitor (IVETTE-I) Disposition: ADMITTED INPATIENT Admitting Physician: Lucila Pringle Condition: STABLE Referrals: LUCILA PRINGLE MD (PCP) CAROLINA RANGEL MD Jan 18, 2017 21:09
[2017-01-18] MEDS ORDERED: ASPI-482 PO (22:17)
[2017-01-18 23:00] VITALS: BP 153/73
[2017-01-19 03:00] VITALS: BP 146/69
[2017-01-19 07:00] VITALS: BP 156/69
[2017-01-19 10:46] VITALS: BP 150/69
[2017-01-19] MEDS ORDERED: traMADol 50 MG TABLET PO PRN (11:30)
--- NOTE | 2017-01-19 11:58 | PDOC ---
GENERAL General: see dictated H&P. Problems: VITAL SIGNS Vital Signs: Vital Signs Date Time Temp Pulse Resp B/P (MAP) Pulse Ox O2 Delivery O2 Flow Rate FiO2 01/19/17 10:46 97.9 67 19 150/69 (96) 95 Room Air 97.9 I & O I & O Intake and Output 01/19/17 07:00 Intake Total 240 ml Balance 240 ml Intake Oral 240 ml # Voids 1 ALLERGIES Allergies: Allergies Coded Allergies Type Severity Reaction Last Updated Verified lisinopril Allergy Severe Swelling 11/05/16 Yes Penicillins Allergy Intermediate Hives 11/05/16 Yes codeine Allergy Intermediate Hives, ULTRAM at home 11/05/16 Yes MEDS Medications: Current Medications Medications (Trade) Dose Ordered Sig/Miriam Start Time Stop Time Status Last Admin Dose Admin Albuterol Sulfate (Ventolin Neb Soln) 2.5 mg RTQID 01/19/17 12:00 Aspirin (Ecotrin) 81 mg DAILY 01/19/17 12:00 Atorvastatin Calcium (Lipitor) 40 mg QHS 01/19/17 21:00 Budesonide (Pulmicort) 0.5 mg RTBID 01/19/17 20:00 Metoprolol Succinate (Toprol Xl) 25 mg DAILY 01/19/17 12:00 Non-Formulary Medication 2 puff BID 01/19/17 21:00 01/19/17 21:00 DC Tramadol HCl (Ultram) 50 mg PRN Q6HRS PRN 01/19/17 11:30 LAB Lab: Laboratory Tests Test 01/18/17 20:25 White Blood Count 4.7 x10^3/uL (4.0-11.0) Red Blood Count 3.53 x10^6/uL (3.50-5.40) Hemoglobin 10.2 g/dL (12.0-15.5) Hematocrit 30.3 % (36.0-47.0) Mean Corpuscular Volume 86 fL (79-100) Mean Corpuscular Hemoglobin 29 pg (25-35) Mean Corpuscular Hemoglobin Concent 34 g/dL (31-37) Red Cell Distribution Width 15.9 % (11.5-14.5) Platelet Count 258 x10^3/uL (140-400) Neutrophils (%) (Auto) 41 % (31-73) Lymphocytes (%) (Auto) 45 % (24-48) Monocytes (%) (Auto) 12 % (0-9) Eosinophils (%) (Auto) 1 % (0-3) Basophils (%) (Auto) 1 % (0-3) Neutrophils # (Auto) 1.9 x10^3uL (1.8-7.7) Lymphocytes # (Auto) 2.1 x10^3/uL (1.0-4.8) Monocytes # (Auto) 0.6 x10^3/uL (0.0-1.1) Eosinophils # (Auto) 0.0 x10^3/uL (0.0-0.7) Basophils # (Auto) 0.0 x10^3/uL (0.0-0.2) Sodium Level 122 mmol/L (136-145) Potassium Level 4.3 mmol/L (3.5-5.1) Chloride Level 88 mmol/L (98-107) Carbon Dioxide Level 26 mmol/L (21-32) Anion Gap 8 (6-14) Blood Urea Nitrogen 11 mg/dL (7-20) Creatinine 1.0 mg/dL (0.6-1.0) Estimated GFR (Cockcroft-Gault) 65.6 BUN/Creatinine Ratio 11 (6-20) Glucose Level 108 mg/dL (70-99) Calcium Level 9.1 mg/dL (8.5-10.1) Total Bilirubin 0.3 mg/dL (0.2-1.0) Aspartate Amino Transf (AST/SGOT) 25 U/L (15-37) Alanine Aminotransferase (ALT/SGPT) 18 U/L (14-59) Alkaline Phosphatase 91 U/L (46-116) Total Protein 7.5 g/dL (6.4-8.2) Albumin 3.9 g/dL (3.4-5.0) Albumin/Globulin Ratio 1.1 (1.0-1.7) PARVEZ POWERS MD Jan 19, 2017 11:58
[2017-01-19] MEDS: ALBUTEROL SULFATE 2.5 MG/3 ML NEBU. NEB SCH ×3 (12:35→20:24)
--- NOTE | 2017-01-19 12:36 | HP ---
ADMIT DATE: CHIEF COMPLAINT AND HISTORY OF PRESENT ILLNESS: This 76-year-old black female patient of Dr. Pina, who was admitted through the Emergency Room with angioedema on the day of admission. She has had a history of taking lisinopril, and this was stopped on admission for the same. She was also found to be profoundly hyponatremic with a sodium of 122, which she tells me has been low before. She denies that there any diuretic and the lisinopril at home, and I have no other obvious explanation for the hyponatremia at this point in time. PAST MEDICAL AND SURGICAL HISTORY: Remarkable for asthma, hypertension, prior what she describes as a left carotid stent. SOCIAL HISTORY: She is nonsmoker, occasionally uses alcohol, does not use drugs. FAMILY HISTORY: Noncontributory. ALLERGIES: INCLUDE PENICILLIN, CODEINE AND NOW LISINOPRIL. HOME MEDICATIONS: Listed on the med rec and have been in her own computer and have been addressed. REVIEW OF SYSTEMS: Facial swelling. She denies any difficulty swallowing or shortness of breath with the same. She does admit to just generalized malaise and fatigue over a significant period of time without normal appetite, which certainly could all be related to her hyponatremia. PHYSICAL EXAMINATION: GENERAL: She is a well-developed, well-nourished female, nontoxic appearance. Does have some swelling of her face still, but significantly better according to her from last night. HEAD, EYES, EARS, NOSE AND THROAT: Remarkable for the swelling. NECK: Supple without bruit, thyromegaly. CHEST: Clear to auscultation and percussion. HEART: Regular rate and rhythm without S3, S4 or murmur. ABDOMEN: Soft, nontender, without hepatosplenomegaly or mass. EXTREMITIES: Without cyanosis, clubbing, edema. NEUROLOGIC: She is intact. IMPRESSION: Angioedema, likely due to IVETTE inhibitors as well as significant hyponatremia and normochromic normocytic anemia. PLAN: The patient has been admitted. She will be watched at this point in time with the swelling. I am going to repeat a sodium on her tomorrow morning, and we will ask Renal for opinion on the same as it seems to be more of a longstanding issue than an acute issue. PARVEZ POWERS MD DR: Celia JOB#: [id number] / [id number]
[2017-01-19] MEDS: ASPIRIN ENTERIC COATED 81 MG TABLET.DR. PO SCH (12:44)
[2017-01-19] MEDS: METOPROLOL SUCC 24HR ER 25 MG TAB.ER.24H. PO SCH (12:45)
[2017-01-19] MEDS ORDERED: NON FORMULARY ITEM (Albuterol Sulfate (Ventolin Hfa Inhaler) 2 PUFF) INH SCH (13:00)
[2017-01-19] MEDS ORDERED: SODIUM CHLORIDE 3 % 500 ML IV PRN (13:15)
--- NOTE | 2017-01-19 13:24 | PDOC2 ---
CONSULT Date of Consult Date of Consult DATE: 01/19/17 TIME: 13:06 Reason for Consult Reason for Consult: HypoNatremia Referring Physician Referring Physician: Dr Balderas Identification/Chief Complaint Chief Complaint facial swelling Problems: Source Source: Chart review, Patient History of Present Illness Reason for Visit: as dictated Past Medical History Cardiovascular: CHF, HTN, Pulmonary hypertension Pulmonary: COPD GI: GERD, Other Heme/Onc: Anemia NOS Psych: Anxiety Musculoskeletal: low back pain, Osteoarthritis Renal/: UTI Endocrine: Osteoporosis Past Surgical History Past Surgical History: Total hip replacement, Colectomy Family History Family History: Hypertension Social History <1 pack per day ALCOHOL: rare Drugs: None Lives: Alone Current Problem List Problem List Problems Medical Problems: (1) Angioedema due to angiotensin converting enzyme inhibitor(IVETTE-I) Status: Acute Current Medications Current Medications Current Medications Aspirin (Ecotrin) 81 mg DAILY PO Last administered on 01/19/17 12:44; Start 01/19/17 at 12:00 Atorvastatin Calcium (Lipitor) 40 mg QHS PO ; Start 01/19/17 at 21:00 Metoprolol Succinate (Toprol Xl) 25 mg DAILY PO Last administered on 12:45; Start 01/19/17 at 12:00 Tramadol HCl (Ultram) 50 mg PRN Q6HRS PRN PO PAIN; Start 01/19/17 at 11:30 Non-Formulary Medication 2 puff QID INH ; Start 01/19/17 at 13:00; Stop at 13:00; Status DC Non-Formulary Medication 2 puff BID IH ; Start 01/19/17 at 21:00; Stop at 21:00; Status DC Albuterol Sulfate (Ventolin Neb Soln) 2.5 mg RTQID NEB Last administered on 12:35; Start 01/19/17 at 12:00 Budesonide (Pulmicort) 0.5 mg RTBID NEB ; Start 01/19/17 at 20:00 Active Scripts Active Lipitor (Atorvastatin Calcium) 40 Mg Tablet 40 Tab PO QHS Metoprolol Succinate ( Xl ) (Metoprolol Succinate) 25 Mg Tab.er.24h 1 Tab PO DAILY Reported Aspir 81 (Aspirin) 81 Mg Tablet.dr 1 Tab PO DAILY Omeprazole 20 Mg Capsule.dr 20 Mg PO DAILY Symbicort 160-4.5 Mcg Inhaler (Budesonide/Formoterol Fumarate) 10.2 Gm Hfa.aer.ad 2 Puff IH BID Tramadol Hcl 50 Mg Tablet 1 Tab PO PRN Q6HRS Fish Oil 1,000 Mg Capsule ([place]-3 Fatty Acids/Fish Oil) 1 Each Capsule 1 Each PO DAILY Creon 36,000 Units Capsule (Lipase/Protease/Amylase) 1 Each Capsule.dr 1 Each PO TID Ascorbic Acid 500 Mg Tablet 500 Mg PO DAILY Ventolin Hfa Inhaler (Albuterol Sulfate) 18 Gm Hfa.aer.ad 2 Puff INH QID Allergies Allergies: Coded Allergies: lisinopril (Verified Allergy, Severe, Swelling, 11/05/16) facial swelling Penicillins (Verified Allergy, Intermediate, Hives, 11/05/16) codeine (Verified Allergy, Intermediate, Hives, ULTRAM at home, 11/05/16) ROS Review of System GEN: no Fevers no Chills EYES: no new Visual Complaints ENT: no EN Drainage no Hearing deficiets CVS: no Orthopnea no CP RESP: no SOB no ERNANDEZ GI: no Nausea no Vomiting : no Dysuria no Urgency HEME: no easy bruising no Palp Ly Nodes NEURO no Focal Weakness no Sz PSYCH: no Suicidal Ideation no Depression SKIN: no Rashes ENDO: no Polyuria or Polydipsia no Hot/Cold Intolerance MU SK: occ Arthraigia no Myalgia Physical Exam Physical Exam General Appearance: Awake Alert Oriented x 2 In no Distress Eyes: VIsion Unchanged Conjunctiva Normal EN: No EN Drainage Mucous Memb. moist Neck: no JVD no JVP Supple no Thyromegaly CVS: S1 S2 soft Murmur No Gallop No Rub no Edema Resp: no Rales no Rhonchi no Acc. Muscle use GI: BAS +ve NO Bruit Non Tender Non Distended : no CVA tenderness; no Suprapubic Tenderness SKIN: no Rashes Breast Exam deferred Mu.Sk: Adequate ROM no Muscle Atrophy Heme: Unable to palpate Obvious LAD no Splenomegaly NEURO: Good Strength and Tone Cranial Nerves II - XII grossly intact Psych: no Depressed no Active hallucination Vital Signs Vital Signs Date Time Temp Pulse Resp B/P (MAP) Pulse Ox O2 Delivery O2 Flow Rate FiO2 01/19/17 12:45 67 150/69 01/19/17 12:41 96 Room Air 01/19/17 10:46 97.9 19 97.9 Assessment & Plan HypoNatremia - rel asymptomatic currently. Appears to have some chroniticity. She cant tell me if she is on HCTZ with IVETTE-i. Will order full w/up. May need CTs if labs work is non-revealing. see orders Anemia - check Iron. suspect due to recent CEA HTN - given ASVDz elsewhere and contd smoking - will chekc NGUYEN for Rv HTn since it may contribute to hyponatremia chon if unilateral Angioedema with IVETTE-i - now d/kinsey Discussed Plan of Care with pt Labs Labs Laboratory Tests Test 01/18/17 20:25 White Blood Count 4.7 x10^3/uL (4.0-11.0) Red Blood Count 3.53 x10^6/uL (3.50-5.40) Hemoglobin 10.2 g/dL (12.0-15.5) Hematocrit 30.3 % (36.0-47.0) Mean Corpuscular Volume 86 fL (79-100) Mean Corpuscular Hemoglobin 29 pg (25-35) Mean Corpuscular Hemoglobin Concent 34 g/dL (31-37) Red Cell Distribution Width 15.9 % (11.5-14.5) Platelet Count 258 x10^3/uL (140-400) Neutrophils (%) (Auto) 41 % (31-73) Lymphocytes (%) (Auto) 45 % (24-48) Monocytes (%) (Auto) 12 % (0-9) Eosinophils (%) (Auto) 1 % (0-3) Basophils (%) (Auto) 1 % (0-3) Neutrophils # (Auto) 1.9 x10^3uL (1.8-7.7) Lymphocytes # (Auto) 2.1 x10^3/uL (1.0-4.8) Monocytes # (Auto) 0.6 x10^3/uL (0.0-1.1) Eosinophils # (Auto) 0.0 x10^3/uL (0.0-0.7) Basophils # (Auto) 0.0 x10^3/uL (0.0-0.2) Sodium Level 122 mmol/L (136-145) Potassium Level 4.3 mmol/L (3.5-5.1) Chloride Level 88 mmol/L (98-107) Carbon Dioxide Level 26 mmol/L (21-32) Anion Gap 8 (6-14) Blood Urea Nitrogen 11 mg/dL (7-20) Creatinine 1.0 mg/dL (0.6-1.0) Estimated GFR (Cockcroft-Gault) 65.6 BUN/Creatinine Ratio 11 (6-20) Glucose Level 108 mg/dL (70-99) Calcium Level 9.1 mg/dL (8.5-10.1) Total Bilirubin 0.3 mg/dL (0.2-1.0) Aspartate Amino Transf (AST/SGOT) 25 U/L (15-37) Alanine Aminotransferase (ALT/SGPT) 18 U/L (14-59) Alkaline Phosphatase 91 U/L (46-116) Total Protein 7.5 g/dL (6.4-8.2) Albumin 3.9 g/dL (3.4-5.0) Albumin/Globulin Ratio 1.1 (1.0-1.7) Laboratory Tests Test 01/18/17 20:25 White Blood Count 4.7 x10^3/uL (4.0-11.0) Red Blood Count 3.53 x10^6/uL (3.50-5.40) Hemoglobin 10.2 g/dL (12.0-15.5) Hematocrit 30.3 % (36.0-47.0) Mean Corpuscular Volume 86 fL (79-100) Mean Corpuscular Hemoglobin 29 pg (25-35) Mean Corpuscular Hemoglobin Concent 34 g/dL (31-37) Red Cell Distribution Width 15.9 % (11.5-14.5) Platelet Count 258 x10^3/uL (140-400) Neutrophils (%) (Auto) 41 % (31-73) Lymphocytes (%) (Auto) 45 % (24-48) Monocytes (%) (Auto) 12 % (0-9) Eosinophils (%) (Auto) 1 % (0-3) Basophils (%) (Auto) 1 % (0-3) Neutrophils # (Auto) 1.9 x10^3uL (1.8-7.7) Lymphocytes # (Auto) 2.1 x10^3/uL (1.0-4.8) Monocytes # (Auto) 0.6 x10^3/uL (0.0-1.1) Eosinophils # (Auto) 0.0 x10^3/uL (0.0-0.7) Basophils # (Auto) 0.0 x10^3/uL (0.0-0.2) Sodium Level 122 mmol/L (136-145) Potassium Level 4.3 mmol/L (3.5-5.1) Chloride Level 88 mmol/L (98-107) Carbon Dioxide Level 26 mmol/L (21-32) Anion Gap 8 (6-14) Blood Urea Nitrogen 11 mg/dL (7-20) Creatinine 1.0 mg/dL (0.6-1.0) Estimated GFR (Cockcroft-Gault) 65.6 BUN/Creatinine Ratio 11 (6-20) Glucose Level 108 mg/dL (70-99) Calcium Level 9.1 mg/dL (8.5-10.1) Total Bilirubin 0.3 mg/dL (0.2-1.0) Aspartate Amino Transf (AST/SGOT) 25 U/L (15-37) Alanine Aminotransferase (ALT/SGPT) 18 U/L (14-59) Alkaline Phosphatase 91 U/L (46-116) Total Protein 7.5 g/dL (6.4-8.2) Albumin 3.9 g/dL (3.4-5.0) Albumin/Globulin Ratio 1.1 (1.0-1.7) PENNY HODGE MD Jan 19, 2017 13:24
[2017-01-19 14:16] LABS: % SAT IRON 25 % (15-34); IRON,SERUM 99 ug/dL (50-170)
[2017-01-19 14:26] LABS: FREE T4 0.93 ng/dL (0.76-1.46)
[2017-01-19 14:31] LABS: URIC ACID 3.5 mg/dL (2.6-6.0)
[2017-01-19 15:00] VITALS: BP 121/64
[2017-01-19 16:23] LABS: BILIRUBIN,URINE NEGATIVE (NEG); GLUCOSE,URINE 500 mg/dL (NEG); NITRITE,URINE NEGATIVE (NEG); PROTEIN,URINE NEGATIVE (NEG-TRACE); UROBILINOGEN,URINE 0.2 mg/dL (0.2 mg/dL)
[2017-01-19 16:40] LABS: BACTERIA,URINE FEW /HPF (0-FEW); RBC,URINE RARE /HPF (0-2); SQUAMOUS EPITHELIAL CELL,UR MOD /LPF
[2017-01-19] MEDS: IV NORMAL SALINE 1000ML BAG 1,000 ML IV SCH (16:41)
[2017-01-19 19:00] VITALS: BP 146/61
[2017-01-19] MEDS: BUDESONIDE 0.5 MG/2 ML NEBU. NEB SCH (20:24)
[2017-01-19] MEDS ORDERED: NON FORMULARY ITEM (Budesonide/Formoterol Fumarate (Symbicort 160-4.5 Mcg Inhaler) 2 PUFF) IH SCH (21:00)
[2017-01-19] MEDS: ATORVASTATIN CALCIUM 40 MG TABLET. PO SCH (21:43)
[2017-01-19 23:00] VITALS: BP 123/59
--- NOTE | 2017-01-20 00:53 | CONS ---
DATE OF CONSULTATION: PRIMARY PHYSICIAN: Dr. Waterman REASON FOR CONSULTATION: Hyponatremia. HISTORY OF PRESENT ILLNESS: The patient is a 76-year-old female who was brought to the ED by a family member with complaints of facial swelling. She claims this started right after she took her lisinopril. She has been on lisinopril for 5 years. She denies any breathing or swallowing problems. She was seen in the ER and admitted for possible angioedema. Lisinopril has been discontinued; however, in the ER, she was noted to have a sodium of 122. In reviewing her previous records, it appears that she had a sodium of 119 in the perioperative timeframe from her recent CEA in November. This recovered nicely to 127. Precise interventions for the same are not very apparent from discharge summary and her hyponatremia was deferred to Dr. Pina. I will discuss the patient's care with Dr. Pina. The patient is noted to be on lisinopril, but is not noted to be on HCTZ. She is not sure if this was recently added. She has not gained weight or lost weight that she is aware of. Denies constipation. Denies dizziness, lightheadedness, nausea, vomiting currently. Chest x-ray was also done on 12/26/2016, 2 views, shows mild hyperinflated lungs, possible emphysema, no mention of masses, etc., on the chest x-ray. For rest of the details, see electronic records. PENNY HODGE MD DR: TAMELA/claire JOB#: [id number] / [id number]
[2017-01-20 03:00] VITALS: BP 130/64
[2017-01-20] MEDS: IV NORMAL SALINE 1000ML BAG 1,000 ML IV SCH ×2 (04:20→15:53)
[2017-01-20 04:46] LABS: CALCIUM 8.6 mg/dL (8.5-10.1); CREATININE 0.8 mg/dL (0.6-1.0); GFR 84.8; POTASSIUM 4.1 mmol/L (3.5-5.1)
[2017-01-20 07:00] VITALS: BP 132/62
--- NOTE | 2017-01-20 07:39 | RAD ---
EXAM: RENAL DOPPLER ULTRASOUND. HISTORY: Hyponatremia. Hypertension. COMPARISON: 07/17/2015. FINDINGS: Grayscale and Doppler analysis of the renal vasculature was performed bilaterally. Grayscale analysis of the kidneys and bladder were also performed. The peak systolic velocities within the proximal, mid and distal right renal artery are 265 cm/s, 116 cm/s and 91 cm/s, respectively. Resistive indices measure 0.7. The right renal vein is patent. The corresponding measurements on the left are 223 cm/s proximally. The remainder of the renal artery is not visualized. Resistive indices measure 0.6. The left renal vein is patent. The peak systolic velocity within the abdominal aorta at the level of the renal arteries is 113 cm/s. The right kidney measures 10.2 cm. Cortical echogenicity is increased. Cortical thickness is preserved. There is no hydronephrosis. A right renal cyst in the interpolar region measures 1.7 x 1.7 cm and appears benign. The left kidney is obscured by bowel gas and the ribs currently. Images of the bladder reveal no gross abnormality. Ureteral jets are not visualized currently. IMPRESSION: 1. Hemodynamically significant stenosis within the proximal renal arteries bilaterally. 2. The left kidney is obscured currently. No clear hydronephrosis. 3. Increased right renal cortical echogenicity is consistent with intrinsic renal disease.
[2017-01-20] MEDS: BUDESONIDE 0.5 MG/2 ML NEBU. NEB SCH ×2 (08:33→19:39)
[2017-01-20] MEDS: ALBUTEROL SULFATE 2.5 MG/3 ML NEBU. NEB SCH ×4 (08:33→19:39)
[2017-01-20] MEDS: ASPIRIN ENTERIC COATED 81 MG TABLET.DR. PO SCH (09:03)
[2017-01-20] MEDS: METOPROLOL SUCC 24HR ER 25 MG TAB.ER.24H. PO SCH (09:05)
--- NOTE | 2017-01-20 10:45 | PDOC ---
SUBJECTIVE ROS HypoNatremia doign and feeling the same, denies complaitns CVS: no Orthopnea, no CP RESP: no SOB, no ERNANDEZ GI: no Nausea, no Vomiting : no Dysuria, no Urgency OBJECTIVE Vital Signs Vital Signs Date Time Temp Pulse Resp B/P (MAP) Pulse Ox O2 Delivery O2 Flow Rate FiO2 01/20/17 09:05 78 118/56 01/20/17 08:36 95 Room Air 01/20/17 03:00 97.5 19 97.5 I & 0 Intake and Output 01/20/17 06:59 Intake Total 1860 ml Balance 1860 ml Intake Oral 860 ml IV Total 1000 ml # Voids 2 PHYSICAL EXAM Physical Exam General Appearance: Awake Alert Oriented x 2 In no Distress Eyes: VIsion Unchanged Conjunctiva Normal EN: No EN Drainage Mucous Memb. moist Neck: no JVD no JVP Supple no Thyromegaly CVS: S1 S2 soft Murmur No Gallop No Rub no Edema Resp: no Rales no Rhonchi no Acc. Muscle use GI: BAS +ve NO Bruit Non Tender Non Distended : no CVA tenderness; no Suprapubic Tenderness Assessment & Plan HypoNatremia - rel asymptomatic currently. Appears to have some chronicity. Better with NS alone (she did this previously too it seems) - suspect due to hypovolemia ? vol dpeeltoin - Pt claims she is eating and drinking well - Not sure if she was on HCTZ as OP Glycosuria - no corresponding S. Glucose avail for time of UA. so will repeat UA lauren am. If persistent Glycosuria then she may need eval for Paraproteins Anemia - Iron is adequate but ferritin is marginally on low side.. suspect due to recent CEA HTN - given ASVDz elsewhere and contd smoking - will check for NGUYEN and Rv HTn since it may contribute to hyponatremia chon if unilateral (RAD done but results are not very clear) Angioedema with IVETTE-i - now d/kinsey Discussed Plan of Care with pt COMMENT/RELEVANT DATA Meds Current Medications Medications (Trade) Dose Ordered Sig/Miriam Start Time Stop Time Status Last Admin Dose Admin Albuterol Sulfate (Ventolin Neb Soln) 2.5 mg RTQID 01/19/17 12:00 01/20/17 08:33 2.5 MG Aspirin (Ecotrin) 81 mg DAILY 01/19/17 12:00 01/20/17 09:03 81 MG Atorvastatin Calcium (Lipitor) 40 mg QHS 01/19/17 21:00 01/19/17 21:43 40 MG Budesonide (Pulmicort) 0.5 mg RTBID 01/19/17 20:00 01/20/17 08:33 0.5 MG Metoprolol Succinate (Toprol Xl) 25 mg DAILY 01/19/17 12:00 01/20/17 09:05 25 MG Non-Formulary Medication 2 puff BID 01/19/17 21:00 01/19/17 21:00 DC Sodium Chloride 1,000 ml @ 75 mls/hr [id number] 01/19/17 13:30 01/20/17 04:20 75 MLS/HR Tramadol HCl (Ultram) 50 mg PRN Q6HRS PRN 01/19/17 11:30 Lab Laboratory Tests Test 01/19/17 13:40 01/19/17 15:30 01/19/17 15:55 01/19/17 20:15 Reticulocyte Count (auto) 1.7 % (0.5-2.5) Serum Osmolality 265 mOsm/Kg (279-304) Uric Acid 3.5 mg/dL (2.6-6.0) Iron Level 99 ug/dL (50-170) Total Iron Binding Capacity 398 ug/dL (250-450) Iron Saturation 25 % (15-34) Ferritin 38 ng/mL (8-252) Thyroid Stimulating Hormone (TSH) 0.946 uIU/mL (0.358-3.74) Free Thyroxine 0.93 ng/dL (0.76-1.46) Urine Collection Type Unknown Urine Color Yellow Urine Clarity Clear Urine pH 7.0 Urine Specific [place] <=1.005 Urine Protein Negative mg/dL (NEG-TRACE) Urine Glucose (UA) 500 mg/dL (NEG) Urine Ketones (Stick) Negative mg/dL (NEG) Urine Blood Negative (NEG) Urine Nitrite Negative (NEG) Urine Bilirubin Negative (NEG) Urine Urobilinogen Dipstick 0.2 mg/dL (0.2 mg/dL) Urine Leukocyte Esterase Moderate (NEG) Urine RBC Rare /HPF (0-2) Urine WBC 5-10 /HPF (0-4) Urine Squamous Epithelial Cells Mod /LPF Urine Bacteria Few /HPF (0-FEW) Sodium Level 125 mmol/L (136-145) 126 mmol/L (136-145) Test 01/20/17 03:00 01/20/17 07:45 Sodium Level 128 mmol/L (136-145) 128 mmol/L (136-145) Potassium Level 4.1 mmol/L (3.5-5.1) Chloride Level 95 mmol/L (98-107) Carbon Dioxide Level 28 mmol/L (21-32) Anion Gap 5 (6-14) Blood Urea Nitrogen 9 mg/dL (7-20) Creatinine 0.8 mg/dL (0.6-1.0) Estimated GFR (Cockcroft-Gault) 84.8 Glucose Level 95 mg/dL (70-99) Calcium Level 8.6 mg/dL (8.5-10.1) PENNY HODGE MD Jan 20, 2017 10:45
[2017-01-20 11:48] VITALS: BP 135/63
--- NOTE | 2017-01-20 12:21 | PDOC ---
SUBJECTIVE Subjective anxious to go home OBJECTIVE Vital Signs Vital Signs Date Time Temp Pulse Resp B/P (MAP) Pulse Ox O2 Delivery O2 Flow Rate FiO2 01/20/17 11:48 97.7 67 19 135/63 (87) 96 Room Air 97.7 01/20/17 09:05 78 118/56 01/20/17 08:36 95 Room Air 01/20/17 08:36 95 Room Air 01/20/17 08:00 Room Air 01/20/17 07:00 97.7 63 19 132/62 (85) 96 Room Air 97.7 01/20/17 03:00 97.5 63 19 130/64 (86) 97 Room Air 97.5 01/19/17 23:00 98.7 62 19 123/59 (80) 98 Room Air 98.7 01/19/17 20:25 92 Room Air 01/19/17 20:00 Room Air 01/19/17 19:00 97.5 63 19 146/61 (89) 97 Room Air 97.5 01/19/17 15:40 Room Air 01/19/17 15:00 96.3 62 19 121/64 (83) 96 Room Air 96.3 01/19/17 12:45 67 150/69 01/19/17 12:41 96 Room Air I & O Intake and Output 01/20/17 07:00 Intake Total 1860 ml Balance 1860 ml Intake Oral 860 ml IV Total 1000 ml # Voids 2 PHYSICAL EXAM Physical Exam lungs with decrease BS chronic heart RRR abd soft and nonetender ext no edema ASSESSMENT/PLAN Assessment/Plan discussed with kirk Franco , home when Na+ > 130, renal artery stenosis can be followed with CV out pt , Bp good with current Tx Problems: COMMENT Lab Laboratory Tests Test 01/19/17 13:40 01/19/17 15:30 01/19/17 15:55 01/19/17 20:15 Reticulocyte Count (auto) 1.7 % (0.5-2.5) Serum Osmolality 265 mOsm/Kg (279-304) Uric Acid 3.5 mg/dL (2.6-6.0) Iron Level 99 ug/dL (50-170) Total Iron Binding Capacity 398 ug/dL (250-450) Iron Saturation 25 % (15-34) Ferritin 38 ng/mL (8-252) Thyroid Stimulating Hormone (TSH) 0.946 uIU/mL (0.358-3.74) Free Thyroxine 0.93 ng/dL (0.76-1.46) Urine Collection Type Unknown Urine Color Yellow Urine Clarity Clear Urine pH 7.0 Urine Specific [place] <=1.005 Urine Protein Negative mg/dL (NEG-TRACE) Urine Glucose (UA) 500 mg/dL (NEG) Urine Ketones (Stick) Negative mg/dL (NEG) Urine Blood Negative (NEG) Urine Nitrite Negative (NEG) Urine Bilirubin Negative (NEG) Urine Urobilinogen Dipstick 0.2 mg/dL (0.2 mg/dL) Urine Leukocyte Esterase Moderate (NEG) Urine RBC Rare /HPF (0-2) Urine WBC 5-10 /HPF (0-4) Urine Squamous Epithelial Cells Mod /LPF Urine Bacteria Few /HPF (0-FEW) Sodium Level 125 mmol/L (136-145) 126 mmol/L (136-145) Test 01/20/17 03:00 01/20/17 07:45 Sodium Level 128 mmol/L (136-145) 128 mmol/L (136-145) Potassium Level 4.1 mmol/L (3.5-5.1) Chloride Level 95 mmol/L (98-107) Carbon Dioxide Level 28 mmol/L (21-32) Anion Gap 5 (6-14) Blood Urea Nitrogen 9 mg/dL (7-20) Creatinine 0.8 mg/dL (0.6-1.0) Estimated GFR (Cockcroft-Gault) 84.8 Glucose Level 95 mg/dL (70-99) Calcium Level 8.6 mg/dL (8.5-10.1) LUCILA PRINGLE MD Jan 20, 2017 12:21
[2017-01-20 14:21] LABS: UR PROTEIN RD 7.3 mg/dL (Not Estab.)
[2017-01-20 15:00] VITALS: BP 141/77
[2017-01-20 15:12] LABS: BILIRUBIN,URINE NEGATIVE (NEG); GLUCOSE,URINE NEGATIVE (NEG); NITRITE,URINE NEGATIVE (NEG); PROTEIN,URINE NEGATIVE (NEG-TRACE); UROBILINOGEN,URINE 0.2 mg/dL (0.2 mg/dL)
[2017-01-20 15:41] LABS: RBC,URINE RARE /HPF (0-2)
[2017-01-20 15:42] LABS: BACTERIA,URINE MODERATE /HPF (0-FEW); SQUAMOUS EPITHELIAL CELL,UR OCC /LPF
[2017-01-20 19:00] VITALS: BP 137/62
[2017-01-20] MEDS: ATORVASTATIN CALCIUM 40 MG TABLET. PO SCH (21:21)
[2017-01-20 23:00] VITALS: BP 128/65
[2017-01-21 03:00] VITALS: BP 123/54
[2017-01-21] MEDS: IV NORMAL SALINE 1000ML BAG 1,000 ML IV SCH (03:15)
[2017-01-21 05:02] LABS: HEMATOCRIT 26.7 % (36.0-47.0); HEMOGLOBIN 8.9 g/dL (12.0-15.5); RED BLOOD COUNT 3.04 x10^6/uL (3.50-5.40); RED CELL DISTRIBUTION WIDTH 15.9 % (11.5-14.5); WHITE BLOOD COUNT 3.7 x10^3/uL (4.0-11.0)
[2017-01-21 05:35] LABS: ALBUMIN 2.8 g/dL (3.4-5.0); ALBUMIN/GLOBULIN RATIO 0.8 (1.0-1.7); CALCIUM 8.5 mg/dL (8.5-10.1); CREATININE 0.7 mg/dL (0.6-1.0); POTASSIUM 3.6 mmol/L (3.5-5.1); TOTAL BILIRUBIN 0.3 mg/dL (0.2-1.0); TOTAL PROTEIN 6.1 g/dL (6.4-8.2)
[2017-01-21 07:00] VITALS: BP 154/76
[2017-01-21] MEDS: BUDESONIDE 0.5 MG/2 ML NEBU. NEB SCH (07:55)
[2017-01-21] MEDS: ALBUTEROL SULFATE 2.5 MG/3 ML NEBU. NEB SCH ×2 (07:55→11:41)
[2017-01-21] MEDS: METOPROLOL SUCC 24HR ER 25 MG TAB.ER.24H. PO SCH (08:39)
[2017-01-21] MEDS: ASPIRIN ENTERIC COATED 81 MG TABLET.DR. PO SCH (08:39)
--- NOTE | 2017-01-21 09:44 | PDOC ---
SUBJECTIVE Subjective She does feel better and is anxious to go home OBJECTIVE Vital Signs Vital Signs Date Time Temp Pulse Resp B/P (MAP) Pulse Ox O2 Delivery O2 Flow Rate FiO2 01/21/17 08:39 66 154/76 01/21/17 07:59 94 Room Air 01/21/17 07:57 94 Room Air 01/21/17 07:00 98.0 66 18 154/76 (102) 97 Room Air 98.0 01/21/17 04:15 96 Room Air 01/21/17 03:15 18 96 Room Air 01/21/17 03:00 98.1 77 18 123/54 (77) 94 Room Air 98.1 01/20/17 23:00 98.1 73 18 128/65 (86) 96 Room Air 98.1 01/20/17 20:00 Room Air 01/20/17 19:39 96 Room Air 01/20/17 19:00 98.1 69 18 137/62 (87) 96 Room Air 98.1 01/20/17 16:26 Room Air 01/20/17 15:00 97.9 62 19 141/77 (98) 95 Room Air 97.9 01/20/17 12:15 Room Air 01/20/17 11:48 97.7 67 19 135/63 (87) 96 Room Air 97.7 I & O Intake and Output 01/21/17 07:00 Intake Total 1720 ml Output Total 700 ml Balance 1020 ml Intake Oral 720 ml IV Total 1000 ml Output Urine Total 700 ml # Voids 1 PHYSICAL EXAM Physical Exam Lungs with decreased breath sounds but no active wheezes Heart regular rate and rhythm Abdomen soft Extremities no edema ASSESSMENT/PLAN Assessment/Plan Her sodium is better today she will be discharged home and follow-up as outpatient Problems: COMMENT Lab Laboratory Tests Test 01/20/17 12:05 01/20/17 14:00 01/21/17 03:45 Sodium Level 126 mmol/L (136-145) 130 mmol/L (136-145) Urine Color Yellow Urine Clarity Clear Urine pH 7.0 Urine Specific [place] 1.010 Urine Protein Negative mg/dL (NEG-TRACE) Urine Glucose (UA) Negative mg/dL (NEG) Urine Ketones (Stick) Negative mg/dL (NEG) Urine Blood Small (NEG) Urine Nitrite Negative (NEG) Urine Bilirubin Negative (NEG) Urine Urobilinogen Dipstick 0.2 mg/dL (0.2 mg/dL) Urine Leukocyte Esterase Large (NEG) Urine RBC Rare /HPF (0-2) Urine WBC 5-10 /HPF (0-4) Urine Squamous Epithelial Cells Occ /LPF Urine Amorphous Sediment Present /HPF Urine Bacteria Moderate /HPF (0-FEW) White Blood Count 3.7 x10^3/uL (4.0-11.0) Red Blood Count 3.04 x10^6/uL (3.50-5.40) Hemoglobin 8.9 g/dL (12.0-15.5) Hematocrit 26.7 % (36.0-47.0) Mean Corpuscular Volume 88 fL (79-100) Mean Corpuscular Hemoglobin 29 pg (25-35) Mean Corpuscular Hemoglobin Concent 33 g/dL (31-37) Red Cell Distribution Width 15.9 % (11.5-14.5) Platelet Count 212 x10^3/uL (140-400) Potassium Level 3.6 mmol/L (3.5-5.1) Chloride Level 97 mmol/L (98-107) Carbon Dioxide Level 26 mmol/L (21-32) Anion Gap 7 (6-14) Blood Urea Nitrogen 6 mg/dL (7-20) Creatinine 0.7 mg/dL (0.6-1.0) Estimated GFR (Cockcroft-Gault) 99.0 BUN/Creatinine Ratio 9 (6-20) Glucose Level 96 mg/dL (70-99) Calcium Level 8.5 mg/dL (8.5-10.1) Total Bilirubin 0.3 mg/dL (0.2-1.0) Aspartate Amino Transf (AST/SGOT) 21 U/L (15-37) Alanine Aminotransferase (ALT/SGPT) 14 U/L (14-59) Alkaline Phosphatase 66 U/L (46-116) Total Protein 6.1 g/dL (6.4-8.2) Albumin 2.8 g/dL (3.4-5.0) Albumin/Globulin Ratio 0.8 (1.0-1.7) LUCILA PRINGLE MD Jan 21, 2017 09:44
--- NOTE | 2017-01-21 10:33 | PDOC ---
SUBJECTIVE ROS HypoNatremia Doign and feeling better, ready to go home CVS: no Orthopnea, no CP RESP: no SOB, no ERNANDEZ GI: no Nausea, no Vomiting : n Dysuria, no Urgency OBJECTIVE Vital Signs Vital Signs Date Time Temp Pulse Resp B/P (MAP) Pulse Ox O2 Delivery O2 Flow Rate FiO2 01/21/17 08:39 66 154/76 01/21/17 08:00 Room Air 01/21/17 07:59 94 01/21/17 07:00 98.0 18 98.0 I & 0 Intake and Output 01/21/17 07:00 Intake Total 1720 ml Output Total 700 ml Balance 1020 ml Intake Oral 720 ml IV Total 1000 ml Output Urine Total 700 ml # Voids 1 PHYSICAL EXAM Physical Exam General Appearance: Awake Alert Oriented x 2 In no Distress Eyes: VIsion Unchanged Conjunctiva Normal EN: No EN Drainage Mucous Memb. moist Neck: no JVD no JVP Supple no Thyromegaly CVS: S1 S2 soft Murmur No Gallop No Rub no Edema Resp: no Rales no Rhonchi no Acc. Muscle use GI: BAS +ve NO Bruit Non Tender Non Distended : no CVA tenderness; no Suprapubic Tenderness Assessment & Plan HypoNatremia - rel asymptomatic currently. Admits that she does not eat much. Better with NS alone (she did this previously too it seems) - suspect due to hypovolemia. encouraged high protien diet with adequate Na. may need Adrenal axis checked as OP if this reccurs chon after CEA ? vol depletion - Pt claims she was note eating well prior to coming here. adviced to use gatorade instead of ^ed water Glycosuria - resolved Anemia - Iron is adequate but ferritin is marginally on low side.. suspect due to recent CEA - f/upas OP HTN - (RAD done but results are not very clear) - CCB for HTN Angioedema with IVETTE-i - now d/kinsey Discussed Plan of Care with pt and Dr Pina COMMENT/RELEVANT DATA Meds Current Medications Medications (Trade) Dose Ordered Sig/Miriam Start Time Stop Time Status Last Admin Dose Admin Albuterol Sulfate (Ventolin Neb Soln) 2.5 mg RTQID 01/19/17 12:00 01/21/17 07:55 2.5 MG Aspirin (Ecotrin) 81 mg DAILY 01/19/17 12:00 01/21/17 08:39 81 MG Atorvastatin Calcium (Lipitor) 40 mg QHS 01/19/17 21:00 01/20/17 21:21 40 MG Budesonide (Pulmicort) 0.5 mg RTBID 01/19/17 20:00 01/21/17 07:55 0.5 MG Metoprolol Succinate (Toprol Xl) 25 mg DAILY 01/19/17 12:00 01/21/17 08:39 25 MG Non-Formulary Medication 2 puff BID 01/19/17 21:00 01/19/17 21:00 DC Sodium Chloride 1,000 ml @ 75 mls/hr [id number] 01/19/17 13:30 01/21/17 03:15 75 MLS/HR Tramadol HCl (Ultram) 50 mg PRN Q6HRS PRN 01/19/17 11:30 01/21/17 03:15 50 MG Lab Laboratory Tests Test 01/20/17 12:05 01/20/17 14:00 01/21/17 03:45 Sodium Level 126 mmol/L (136-145) 130 mmol/L (136-145) Urine Color Yellow Urine Clarity Clear Urine pH 7.0 Urine Specific [place] 1.010 Urine Protein Negative mg/dL (NEG-TRACE) Urine Glucose (UA) Negative mg/dL (NEG) Urine Ketones (Stick) Negative mg/dL (NEG) Urine Blood Small (NEG) Urine Nitrite Negative (NEG) Urine Bilirubin Negative (NEG) Urine Urobilinogen Dipstick 0.2 mg/dL (0.2 mg/dL) Urine Leukocyte Esterase Large (NEG) Urine RBC Rare /HPF (0-2) Urine WBC 5-10 /HPF (0-4) Urine Squamous Epithelial Cells Occ /LPF Urine Amorphous Sediment Present /HPF Urine Bacteria Moderate /HPF (0-FEW) White Blood Count 3.7 x10^3/uL (4.0-11.0) Red Blood Count 3.04 x10^6/uL (3.50-5.40) Hemoglobin 8.9 g/dL (12.0-15.5) Hematocrit 26.7 % (36.0-47.0) Mean Corpuscular Volume 88 fL (79-100) Mean Corpuscular Hemoglobin 29 pg (25-35) Mean Corpuscular Hemoglobin Concent 33 g/dL (31-37) Red Cell Distribution Width 15.9 % (11.5-14.5) Platelet Count 212 x10^3/uL (140-400) Potassium Level 3.6 mmol/L (3.5-5.1) Chloride Level 97 mmol/L (98-107) Carbon Dioxide Level 26 mmol/L (21-32) Anion Gap 7 (6-14) Blood Urea Nitrogen 6 mg/dL (7-20) Creatinine 0.7 mg/dL (0.6-1.0) Estimated GFR (Cockcroft-Gault) 99.0 BUN/Creatinine Ratio 9 (6-20) Glucose Level 96 mg/dL (70-99) Calcium Level 8.5 mg/dL (8.5-10.1) Total Bilirubin 0.3 mg/dL (0.2-1.0) Aspartate Amino Transf (AST/SGOT) 21 U/L (15-37) Alanine Aminotransferase (ALT/SGPT) 14 U/L (14-59) Alkaline Phosphatase 66 U/L (46-116) Total Protein 6.1 g/dL (6.4-8.2) Albumin 2.8 g/dL (3.4-5.0) Albumin/Globulin Ratio 0.8 (1.0-1.7) PENNY HODGE MD Jan 21, 2017 10:33
--- NOTE | 2017-01-21 10:47 | PDOC3 ---
Discharge Summary* Date of Admission: Jan 19, 2017 Date of Discharge: Jan 21, 2017 Admitting Diagnosis Problems Medical Problems: (1) Angioedema due to angiotensin converting enzyme inhibitor(IVETTE-I) Status: Acute Problems: Final Diagnosis 1-angioedema due to IVETTE inhibitor 2-Hyponatremia 130 on discharge asymptomatic currently. suspect due to hypovolemia. encouraged high protien diet with adequate Na. may need Adrenal axis checked as OP if this recur 3-Glycosuria - resolved 4-Anemia - Iron is adequate but ferritin is marginally on low side.. suspect due to recent CEA and the blood loss from surgery - f/u as OP 5-HTN 6-COPD 7-peripheral vascular disease status post femoral-popliteal bypass 8-history of pancreatic insufficiency Problems Medical Problems: (1) Angioedema due to angiotensin converting enzyme inhibitor(IVETTE-I) Status: Acute CONSULTS Nephrology Procedures Abdominal ultrasound, renal Doppler ultrasound Brief Hospital Course Ms. Hackett is a 76 old [sex] who presented with [ ] Disposition/Orders: D/C to Home CONDITION AT DISCHARGE: Improved Diet: other (High protien) Scheduled Albuterol Sulfate (Ventolin Hfa Inhaler), 2 PUFF INH QID, (Reported) Ascorbic Acid (Ascorbic Acid), 500 MG PO DAILY, (Reported) Aspirin (Aspir 81), 1 TAB PO DAILY, (Reported) Atorvastatin Calcium (Lipitor), 40 TAB PO QHS Budesonide/Formoterol Fumarate (Symbicort 160-4.5 Mcg Inhaler), 2 PUFF IH BID, ( Reported) Lipase/Protease/Amylase (Creon Dr 36,000 Units Capsule), 1 EACH PO TID, ( Reported) Metoprolol Succinate (Metoprolol Succinate ( Xl )), 1 TAB PO DAILY Kulm-3 Fatty Acids/Fish Oil (Fish Oil 1,000 Mg Capsule), 1 EACH PO DAILY, ( Reported) Omeprazole (Omeprazole), 20 MG PO DAILY, (Reported) Tramadol Hcl (Tramadol Hcl), 1 TAB PO PRN Q6HRS, (Reported) Discontinued Medications Lisinopril (Lisinopril), 40 MG PO DAILY, (Reported) FOLLOW UP APPOINTMENT: [address] Pringle, recheck anemia and workup, recheck sodium, recheck blood pressure Time Spent Total time spent with patient [] minutes for coordination of care, counseling, and education. LUCILA PRINGLE MD 21, 2017 10:47
[2017-01-21 11:00] VITALS: BP 154/75
== END 2017-01-21 11:50 | disposition home or self-care (01) | DRG 916 ==
LOC: ER 20:17 → 5 NORTH 21:25
PROVIDERS: ADMIT Internal Medicine; ATTEND Internal Medicine
DX: T78.3XXA Angioneurotic edema, initial encounter (principal); E87.1 Hypo-osmolality and hyponatremia; I11.0 Hypertensive heart disease with heart failure; I27.20 Pulmonary hypertension, unspecified; I50.9 Heart failure, unspecified; T46.4X5A Adverse effect of angiotensin-converting-enzyme inhibitors, initial encounter; D64.9 Anemia, unspecified; I73.9 Peripheral vascular disease, unspecified; M54.5 Low back pain; R81 Glycosuria; J44.9 Chronic obstructive pulmonary disease, unspecified; K21.9 Gastro-esophageal reflux disease without esophagitis; Z96.649 Presence of unspecified artificial hip joint; F41.9 Anxiety disorder, unspecified; M81.0 Age-related osteoporosis without current pathological fracture; Z82.49 Family history of ischemic heart disease and other diseases of the circulatory system; Z95.5 Presence of coronary angioplasty implant and graft; Z87.440 Personal history of urinary (tract) infections; Z88.0 Allergy status to penicillin; Z88.8 Allergy status to other drugs, medicaments and biological substances
CPT/HCPCS: 36415; 76770; 80048; 80053; 81001; 82570; 82728; 83540; 83550; 83930; 83935; 84156; 84295; 84300; 84439; 84443; 84550; 85025; 85027; 85045; 87086; 94250; 94640; 94760; 96360; J7030; J7613; J7626; 99285-25

== ENCOUNTER → 2017-04-07 | Outpatient (CLI) | payer BC, MEDICAID ==
[~2017-04-07] MED LIST changes: -ASCO500T3 PO; -ASPI-630 PO; -ASPI325T11 PO; -ATOR40TA PO; -BACL10TA PO; -BENZ-8 PO; -BUDE10.2 IH; -CLOP75TA PO; +CONTRAST GIVEN MC; -CYAN10002 PO; +FAMOTIDINE 20 MG/2 ML VIAL; -FLUT9.9S NS; +IODIXANOL 320 MG/ML 100 ML VIAL.; +IV 1/2 NORMAL SALINE 1,000 ML IV; +LIDOCAINE 2% 20 ML VIAL.; -LIPA1CAP14 PO; -LIPA1CAP8 PO; -LISI-334 PO; -LISI40TA PO; -MELO15TA23 PO; -METO-239 PO; +MIDAZOLAM HCL/PF 2 MG/2 ML VIAL.; -MONT10TA9 PO; +NITROGLYCERIN SUBLINGUAL 0.4 MG BOTTLE OF 25. SL; -OMEG1CAP6 PO; -OMEP20CA9 PO; -PANT20TA2 PO; -TRAM50TA PO; -VENTOLIN HFA18 GM INH; +diphenhydrAMINE 50 MG/ML VIAL; +fentaNYL PF VIAL 100 MCG/2 ML VIAL; +methylPREDNISolone SOD SUCC PF 125 MG/2 ML VIAL.
[2017-04-07 07:35] LABS: HEMATOCRIT 32.4 % (36.0-47.0); HEMOGLOBIN 10.7 g/dL (12.0-15.5); MEAN CORPUSCULAR HEMOGLOBIN 28 pg (25-35); MEAN CORPUSCULAR HGB CONC 33 g/dL (31-37); MEAN CORPUSCULAR VOLUME 84 fL (79-100); PLATELET COUNT 308 x10^3/uL (140-400); RED BLOOD COUNT 3.84 x10^6/uL (3.50-5.40); RED CELL DISTRIBUTION WIDTH 18.4 % (11.5-14.5); WHITE BLOOD COUNT 3.4 x10^3/uL (4.0-11.0)
[2017-04-07 07:45] LABS: PARTIAL THROMBOPLASTIN TIME 26 SEC (24-38); PROTHROMBIN TIME PATIENT 12.5 SEC (11.7-14.0)
[2017-04-07 07:47] LABS: ANION GAP 11 (6-14); BLOOD UREA NITROGEN 5 mg/dL (7-20); CALCIUM 8.9 mg/dL (8.5-10.1); CARBON DIOXIDE 28 mmol/L (21-32); CHLORIDE 86 mmol/L (98-107); CREATININE 0.9 mg/dL (0.6-1.0); GFR 74.1; GLUCOSE 116 mg/dL (70-99); SODIUM 125 mmol/L (136-145)
[2017-04-07] MEDS: FAMOTIDINE 20 MG/2 ML VIAL IVP ×2 (08:00)
[2017-04-07] MEDS: diphenhydrAMINE 50 MG/ML VIAL IVP ×2 (08:00)
[2017-04-07] MEDS: methylPREDNISolone SOD SUCC PF 125 MG/2 ML VIAL. IV ×2 (08:00)
[2017-04-07] MEDS: LIDOCAINE 2% 20 ML VIAL. IJ ×2 (08:45)
[2017-04-07] MEDS: fentaNYL PF VIAL 100 MCG/2 ML VIAL IV ×2 (08:45)
[2017-04-07] MEDS: MIDAZOLAM HCL/PF 2 MG/2 ML VIAL. IV ×2 (08:45)
[2017-04-07] MEDS: IODIXANOL 320 MG/ML 100 ML VIAL. IART ×2 (08:45)
== END | disposition home or self-care (01) ==
LOC: CCL 07:04
DX: I70.1 Atherosclerosis of renal artery (principal); I77.1 Stricture of artery; I10 Essential (primary) hypertension; E78.00 Pure hypercholesterolemia, unspecified; J44.9 Chronic obstructive pulmonary disease, unspecified; K21.9 Gastro-esophageal reflux disease without esophagitis; M19.90 Unspecified osteoarthritis, unspecified site; Z96.641 Presence of right artificial hip joint; Z79.01 Long term (current) use of anticoagulants; Z86.69 Personal history of other diseases of the nervous system and sense organs; Z72.0 Tobacco use; Z88.6 Allergy status to analgesic agent; Z88.0 Allergy status to penicillin
CPT/HCPCS: 36252; 36415; 80048; 85027; 85610; 85730; 99152; 99153; C1769; C1771; C1887; C1892; G0269; J1200; J1644; J2250; J2930; J3010; S0028

== ENCOUNTER → 2017-10-15 | Outpatient (CLI) | payer BC, MEDICAID ==
[2017-04-07 11:10] VITALS: BP 155/77
[~2017-10-15] MED LIST changes: +ASCO500T3 PO; +ASPI-482 PO; +ASPI-630 PO; +ASPI325T11 PO; +ATOR40TA PO; +BACL10TA PO; +BENZ-8 PO; +BUDE10.2 IH; +CLOP75TA PO; -CONTRAST GIVEN MC; +CYAN10002 PO; -FAMOTIDINE 20 MG/2 ML VIAL; +FLUT9.9S NS; -IODIXANOL 320 MG/ML 100 ML VIAL.; -IV 1/2 NORMAL SALINE 1,000 ML IV; -LIDOCAINE 2% 20 ML VIAL.; +LIPA1CAP14 PO; +LIPA1CAP8 PO; +LISI-130 PO; +LISI-334 PO; +MELO15TA23 PO; +METO-239 PO; -MIDAZOLAM HCL/PF 2 MG/2 ML VIAL.; +MONT10TA9 PO; -NITROGLYCERIN SUBLINGUAL 0.4 MG BOTTLE OF 25. SL; +OMEG1CAP6 PO; +OMEP20CA9 PO; +PANT20TA2 PO; +TRAM50TA PO; +VENTOLIN HFA18 GM INH; -diphenhydrAMINE 50 MG/ML VIAL; -fentaNYL PF VIAL 100 MCG/2 ML VIAL; -methylPREDNISolone SOD SUCC PF 125 MG/2 ML VIAL.
--- NOTE | 2017-10-15 15:38 | CARD ---
MR#: [id number] Date of Study: 10/15/2017 Ordering Physician: DIGNA CRUZ, Referring Physician: Beba CARO: RE [place] APPROVED REPORT EXAM: Two-dimensional and M-mode echocardiogram with Doppler and color Doppler. Other Information Quality : AverageHR: 72bpm INDICATION Cardiac Disease: CAD RISK FACTORS Hypertension 2D DIMENSIONS RVDd3.6 (2.9-3.5cm)Left Atrium(2D)2.6 (1.6-4.0cm) IVSd0.9 (0.7-1.1cm)Aortic Root(2D)2.9 (2.0-3.7cm) LVDd4.1 (3.9-5.9cm)LVOT Diameter2.1 (1.8-2.4cm) PWd0.9 (0.7-1.1cm)IVSs1.1 (0.8-1.2cm) LVDs2.7 (2.5-4.0cm)FS (%) 34.6 % PWs1.2 (0.8-1.2cm)SV47.7 ml LVEF(%)64.3 (>50%) Aortic Valve AoV Peak Can.111.8cm/sAoV VTI19.5cm AO Peak GR.5.0mmHgLVOT Peak Can.84.1cm/s LVOT VTI 17.47cmAO Mean GR.2mmHg BUSHRA (VMAX)2.93qu6GAO (VTI)3.13cm2 Mitral Valve MV E Sqhxoino22.0cm/sMV E Peak Gr.82mmHg MV DECEL [id number] A Djmhuhxa29.2cm/s MV GFI460xhF/A Ratio0.6 MVA (PHT)1.93cm2 TDI E/Lateral E'6.6E/Medial E'5.1 Pulmonary Valve PV Peak Aofwbfbz434.0cm/sPV Peak Grad.5mmHg Pulmonary Vein S1 Txcrvtkk15.0cm/sD2 Blzvgttq29.1cm/s LEFT VENTRICLE The left ventricle is normal size. There is normal left ventricular wall thickness. The left ventricu lar systolic function is normal. The ejection fraction is estimated at 60-65%. There is normal LV seg mental wall motion. Transmitral Doppler flow pattern is Grade I-abnormal relaxation pattern. RIGHT VENTRICLE The right ventricle is normal size. The right ventricular systolic function is normal. ATRIA The left atrium size is normal. The right atrium size is normal. The interatrial septum is intact wit h no evidence for an atrial septal defect or patent foramen ovale as noted on 2-D or Doppler imaging. AORTIC VALVE The aortic valve is thickened but opens well. Doppler and Color Flow revealed mild aortic regurgitati on. There is no significant aortic valvular stenosis. There is no aortic valvular vegetation. MITRAL VALVE The mitral valve is thickened but opens well. There is no evidence of mitral valve prolapse. There is no mitral valve stenosis. Doppler and Color-flow revealed trace mitral regurgitation. TRICUSPID VALVE The tricuspid valve leaflets are thickened , but open well. Mild tricuspid regurgitation. There is no tricuspid valve prolapse or vegetation. There is no tricuspid valve stenosis. PULMONIC VALVE The pulmonic valve is not well visualized. Doppler and Color Flow revealed no pulmonic valvular regur gitation. There is no pulmonic valvular stenosis. GREAT VESSELS The aortic root is normal in size. The IVC is dilated and collapses <50% with inspiration. PERICARDIAL EFFUSION There is no pleural effusion. There is no evidence of significant pericardial effusion. Critical Notification Critical Value: No <Conclusion> The left ventricular systolic function is normal. The ejection fraction is estimated at 60-65%. There is normal LV segmental wall motion. Transmitral Doppler flow pattern is Grade I-abnormal relaxation pattern. Mild aortic regurgitation. Trace mitral regurgitation. Mild tricuspid regurgitation. There is no evidence of significant pericardial effusion. Signed by : Digna Cruz, Electronically Approved : 10/15/2017 15:36:47
== END | disposition home or self-care (01) ==
LOC: ECHO 13:03
PROVIDERS: ATTEND Internal Medicine Cardiovascular Disease
DX: I08.2 Rheumatic disorders of both aortic and tricuspid valves (principal); I25.10 Atherosclerotic heart disease of native coronary artery without angina pectoris; I11.0 Hypertensive heart disease with heart failure; I50.9 Heart failure, unspecified; E78.00 Pure hypercholesterolemia, unspecified; J44.9 Chronic obstructive pulmonary disease, unspecified; K21.9 Gastro-esophageal reflux disease without esophagitis; Z95.5 Presence of coronary angioplasty implant and graft; Z87.891 Personal history of nicotine dependence
CPT/HCPCS: 93306

== ENCOUNTER 2018-10-02 09:08 | Emergency (ER) | payer BC, MEDICAID ==
[~2018-10-02] VITALS: Ht 152.4 cm; Wt 43.1 kg
[~2018-10-02 09:08] MED LIST changes: +MONT10TA49 PO; -MONT10TA9 PO; +OMEP20CA10 PO; -OMEP20CA9 PO
[2018-10-02 09:19] VITALS: BP 179/84
--- NOTE | 2018-10-02 09:28 | PHYS DOC ---
Past Medical History Past Medical History: Asthma, Hypertension Past Surgical History: Other Additional Past Surgical Histo: CARDIAC STENT Alcohol Use: Occasionally Drug Use: None Adult General Chief Complaint Chief Complaint: LOWEREXTREMITY INJURY [facility] HPI Patient is a 78 year old AA светлана who presents to the emergency department with complaints of left ankle and left foot pain after twisting her foot and ankle while chasing after her grandson on September 25, 2018. Patient reports increased swelling and pain with weightbearing and movement. Currently she rates her pain a 9 out of 10 on the pain scale, there are no alleviating or exacerbating factors. ROS Patient denies any fever, shortness of breath, cough, chest pain, abdominal pain, back pain, neck pain, upper extremity pain, numbness, weakness, or tingling. All other ROS is neg unless otherwise noted in HPI. Review of Systems Review of Systems See Above Current Medications Current Medications Current Medications Medications (Trade) Dose Ordered Sig/Miriam Start Time Stop Time Status Last Admin Dose Admin Tramadol HCl (Ultram) 50 mg 1X ONCE 10/02/18 09:30 10/02/18 09:31 DC 10/02/18 09:41 50 MG Allergies Allergies Allergies Coded Allergies Type Severity Reaction Last Updated Verified lisinopril Allergy Severe Swelling 11/05/16 Yes Penicillins Allergy Intermediate Hives 11/05/16 Yes codeine Allergy Intermediate Hives, ULTRAM at home 11/05/16 Yes Physical Exam Physical Exam See Above Constitutional: Well developed, well nourished, no acute distress, non-toxic appearance. [] HENT: Normocephalic, atraumatic, bilateral external ears normal, nose normal. [] Eyes: conjunctiva normal, no discharge. [] Neck: Normal range of motion, no stridor. [] Cardiovascular:Heart rate regular rhythm Lungs & Thorax: Respirations even and unlabored, no retractions, no respiratory distress Skin: Warm, dry, no erythema, no rash. Extremities: Diffuse left ankle and left foot tenderness to palpation, no crepitus, no deformity, no cyanosis, no clubbing, 2+ edema to left foot and left ankle, limited range of motion of left foot and ankle due to pain Neurologic: Alert and oriented X 3, no focal deficits noted. [] Psychologic: Affect normal, judgement normal, mood normal. [] Current Patient Data Vital Signs Vital Signs Date Time Temp Pulse Resp B/P (MAP) Pulse Ox O2 Delivery O2 Flow Rate FiO2 10/02/18 09:41 17 10/02/18 09:19 97.9 81 179/84 (115) 95 Nasal Cannula 2.0 97.9 EKG EKG [] Radiology/Procedures Radiology/Procedures PROCEDURE: ANKLE LEFT 3V Left foot and ankle radiographs History: Left foot and ankle pain after injury on 09/29/2018 Comparison: None. Left ankle: 3 views of the left ankle are submitted. There is vascular calcification. There is bone demineralization. No acute fracture or dislocation is identified. IMPRESSION: 1. No acute osseous abnormality is identified. Left foot: 3 views of the left foot are submitted. There is some bony deformity of the distal aspects of the second through fifth metatarsal although no acute fracture plane, believed to be old. As seen on the lateral view, there is likely small intra-articular fracture of the distal, plantar aspect of the fifth proximal phalanx. IMPRESSION: 1. As seen on the lateral view, there is likely small intra-articular fracture of the distal, plantar aspect of the fifth proximal phalanx. There is bone demineralization. Bony deformity of second through fifth metatarsals is likely chronic. [] Course & Med Decision Making Course & Med Decision Making Pertinent Labs and Imaging studies reviewed. (See chart for details) [] Dragon Disclaimer Dragon Disclaimer This electronic medical record was generated, in whole or in part, using a voice recognition dictation system. Departure Departure Impression: Primary Impression: Pain in left ankle and joints of left foot Additional Impression: Closed fracture of phalanx of left fifth toe Disposition: 01 HOME, SELF-CARE Condition: STABLE Referrals: THEODORE AUSTIN MD (PCP) MARCIA CRUMP II, MD Patient Instructions: Ankle Pain, Kin Taping of Toes Additional Instructions: Tylenol or ibuprofen as needed for pain. Keep your toes kin taped as done in the ER. Wear the stella wrap provided, ice, and elevate left foot and ankle. Follow up with Dr. Crump if symptoms persist, return to the ER if symptoms worsen. Problem Qualifiers Additional Impression: Closed fracture of phalanx of left fifth toe Encounter type: initial encounter Qualified Codes: S92.502A - Displaced unspecified fracture of left lesser toe(s), initial encounter for closed fracture [facility] [employer] Oct 02, 2018 09:28
[2018-10-02] MEDS ORDERED: traMADol 50 MG TABLET PO ONE (09:30)
--- NOTE | 2018-10-02 10:13 | RAD ---
Left foot and ankle radiographs History: Left foot and ankle pain after injury on 09/29/2018 Comparison: None. Left ankle: 3 views of the left ankle are submitted. There is vascular calcification. There is bone demineralization. No acute fracture or dislocation is identified. IMPRESSION: 1. No acute osseous abnormality is identified. Left foot: 3 views of the left foot are submitted. There is some bony deformity of the distal aspects of the second through fifth metatarsal although no acute fracture plane, believed to be old. As seen on the lateral view, there is likely small intra-articular fracture of the distal, plantar aspect of the fifth proximal phalanx. IMPRESSION: 1. As seen on the lateral view, there is likely small intra-articular fracture of the distal, plantar aspect of the fifth proximal phalanx. There is bone demineralization. Bony deformity of second through fifth metatarsals is likely chronic. Electronically signed by: Kaleb Mcintyre MD (10/02/2018 10:10 AM) [id number]
== END 2018-10-02 10:49 | disposition home or self-care (01) ==
LOC: ER 09:08
DX: S92.512A Displaced fracture of proximal phalanx of left lesser toe(s), initial encounter for closed fracture (principal); J45.909 Unspecified asthma, uncomplicated; I10 Essential (primary) hypertension; X50.1XXA Overexertion from prolonged static or awkward postures, initial encounter; Y93.89 Activity, other specified; Y92.89 Other specified places as the place of occurrence of the external cause; Y99.8 Other external cause status
CPT/HCPCS: 73610; 73630; 99284

== ENCOUNTER → 2018-12-07 | Outpatient (CLI) | payer BC, MEDICAID ==
[~2018-12-07] MED LIST changes: +REGADENOSON 0.4 MG/5 ML DISP.SYRIN. IV ONE
--- NOTE | 2018-12-07 09:43 | CARD ---
MR#: [id number] Date of Study: 12/07/2018 Ordering Physician: DIGNA RUSSO, Referring Physician: DIGNA RUSSO Tech: Angelita Velasquez APPROVED REPORT EXAM: Two-dimensional and M-mode echocardiogram with Doppler and color Doppler. Other Information Quality : AverageHR: 63bpm Technically limited study due to Rapid deeep breathing INDICATION Cardiac Disease: CAD Chest Pain RISK FACTORS Hyperlipidemia 2D DIMENSIONS RVDd3.3 (2.9-3.5cm)Left Atrium(2D)2.9 (1.6-4.0cm) IVSd0.9 (0.7-1.1cm)Aortic Root(2D)3.5 (2.0-3.7cm) LVDd4.8 (3.9-5.9cm)LVOT Diameter2.3 (1.8-2.4cm) PWd1.1 (0.7-1.1cm)LVDs3.4 (2.5-4.0cm) FS (%) 27.8 %SV56.5 ml LVEF(%)53.8 (>50%) Aortic Valve AoV Peak Can.99.0cm/sAoV VTI22.2cm AO Peak GR.3.9mmHgLVOT Peak Can.77.5cm/s LVOT VTI 17.41cmAO Mean GR.2mmHg BUSHRA (VMAX)2.56df1OXY (VTI)3.13cm2 AI P 1/2 Ecvx008qb Mitral Valve MV E Zicwvofs30.2cm/sMV E Peak Gr.200mmHg MV DECEL [id number] A Trhmydrb70.0cm/s MV E Mean Gr.1mmHgMV LJN49ly E/A Ratio1.2MVA (PHT)2.47cm2 TDI E/Lateral E'8.3E/Medial E'11.7 Pulmonary Valve PV Peak Zbnqbrng28.1cm/sPV Peak Grad.3mmHg Tricuspid Valve TR P. Fxjjukga925bp/sRAP XIVYAMVS0inRk TR Peak Gr.07jyJwGJFX38sxGe Pulmonary Vein S1 Myojioaw11.1cm/sD2 Yqndzjqc83.1cm/s PVa qozjhexq193flbu LEFT VENTRICLE The left ventricle is normal size. There is borderline to mild concentric left ventricular hypertroph y. The systolic function is mildly impaired. EF 40-45% Mild global hypokinesis. Transmitral Doppler f low pattern is Grade II-pseudonormal filling dynamics. RIGHT VENTRICLE The right ventricle is normal size. There is normal right ventricular wall thickness. The right ventr icular systolic function is normal. ATRIA The left atrium size is normal. The right atrium size is normal. The interatrial septum is intact wit h no evidence for an atrial septal defect or patent foramen ovale as noted on 2-D or Doppler imaging. AORTIC VALVE The aortic valve is thickened but opens well. Doppler and Color Flow revealed mild aortic regurgitati on. There is no significant aortic valvular stenosis. MITRAL VALVE The mitral valve is thickened but opens well. There is no evidence of mitral valve prolapse. There is no mitral valve stenosis. Doppler and Color-flow revealed mild mitral regurgitation. TRICUSPID VALVE The tricuspid valve is normal in structure and function. Doppler and Color Flow revealed mild tricusp id regurgitation with an estimated PAP of 44 mmHg. There is mild-moderate pulmonary hypertension. The re is no tricuspid valve stenosis. PULMONIC VALVE The pulmonic valve is not well visualized. Doppler and Color Flow revealed no pulmonic valvular regur gitation. There is no pulmonic valvular stenosis. GREAT VESSELS The aortic root is normal in size. The IVC is normal in size and collapses >50% with inspiration. PERICARDIAL EFFUSION There is no evidence of significant pericardial effusion. Critical Notification Critical Value: No <Conclusion> The systolic function is mildly impaired. EF 40-45% Mild global hypokinesis. Doppler and Color-flow revealed mild mitral regurgitation. Signed by : Alcides Rodriguez, Electronically Approved : 12/07/2018 09:43:22
--- NOTE | 2018-12-07 11:51 | RAD ---
MR#: [id number] Date of Study: 12/07/2018 Ordering Physician: DIGNA RUSSO Referring Physician: ANTWAN CARO Tech: RT Will LynnR) (N) APPROVED REPORT Test Type: Pharmacological Stress Nurse/Tech: Sudha Vaughan RN Test Indications: Palpitations, CAD Cardiac History: Hypertension,smoker,COPD, stent 2018 Medications: See Electronic Medical Record Medical History: See Electronic Medical Record Resting ECG: SB Resting Heart Rate: 52 bpm Resting Blood Pressure: 183/72mmHg Pretest Chest Pain: No chest pain Nurse/Tech Notes S1,S2 and lungs diminished in the bases. Consent: The procedure was explained to the patient in lay terms. Informed consent was witnessed. [facility] eout was entered into [employer]. History and Stress Test performed by RT Carlos (R) (N) Pharm. Details Pharmacologic stress testing was performed using 0.4mg per 5ml of regadenoson given intravenously ove r 7-10 seconds. Stress Symptoms Dyspnea POST EXERCISE Reason for Termination: Infusion complete Target HR: No Max HR: 87 bpm 71% of Maximum Predicted HR: 122 bpm Max Blood Pressure: 187/78mmHg Blood Pressure response to exercise: Normal blood pressure response during stress. Heart Rate response to exercise: WNL Chest Pain: No. Arrhythmia: No. ST Change: No. INTERPRETATION Stress EKG Conclusion: Baseline EKG showed sinus rhythm. No ischemic changes at peak stress. No arr hythmias. Rest: Stress: Viability: Radiopharm.Tc99m OhnlhpvcmZw39x Sestamibi Mfuo92qGt 34mCi Duration 15min. 15min. Img Date 12/07/2018 12/07/2018 Inj-Img Clxj36fgk. 60min. Rest Admin Site:IV - Right AntecubitalAdministrator:RT Leah (R)(N) Stress Admin Site: IV - Right AntecubitalAdministrator: RT Leah (R)(N) STRESS DATA End Diast. Vol.74.0mlLVEDV index BSA54.0ml End Syst. Vol.37.0mlLVESV index BSA27.0ml Myocardial Ccln145.0gEject. Xukycuty13.0% Stress Scores Regional WT0.00Summed WT16.00 Regional WM0.00Summed WM12.00 LV Perfusion Scintigraphic images showed moderate predominantly fixed defect involving the inferolateral wall cons istent with previous myocardial infarction with very small amount of reversibility consistent with pe ri-infarct ischemia. Wall Motion Base to mid inferolateral wall hypokinesis with with ejection fraction calculated at 52%. LV Perf. Quant 17 Seg. SSS11.00 17 Seg. SRS12.00 17 Seg. SDS1.00 Stress Defect Extent (% LAD)0.00Rest Defect Extent (% LAD)0.00Rev. Defect Extent (% LAD)0.00 Stress Defect Extent (% LCX) 65.00Rest Defect Extent (% LCX)67.50Rev. Defect Extent (% LCX)1.30 Stress Defect Extent (% RCA)14.40Rest Defect Extent (% RCA)8.90Rev. Defect Extent (% RCA)3.30 Stress Defect Extent (% ROSA)18.90Rest Defect Extent (% ROSA)19.80Rev. Defect Extent (% ROSA)0.90 Conclusion 1. Regadenoson cardioisotope stress test showed moderate infarct involving the inferolateral wall wit h very small amount of kapil-infarct ischemia. 2. Base to mid inferolateral wall hypokinesis with with ejection fraction calculated at 52%. 3. Low risk for cardiac events. Signed by : Digna Russo, Electronically Approved : 12/07/2018 11:50:52
== END | disposition home or self-care (01) ==
LOC: NM 07:28
PROVIDERS: ATTEND Internal Medicine Cardiovascular Disease
DX: I25.10 Atherosclerotic heart disease of native coronary artery without angina pectoris (principal); I34.0 Nonrheumatic mitral (valve) insufficiency; I10 Essential (primary) hypertension; J44.9 Chronic obstructive pulmonary disease, unspecified; F17.200 Nicotine dependence, unspecified, uncomplicated; Z95.5 Presence of coronary angioplasty implant and graft
CPT/HCPCS: 78452; 93017; 93306; A9500; J2785

== ENCOUNTER → 2019-07-02 | Outpatient (CLI) | payer BC, MEDICAID ==
[~2019-07-02] MED LIST changes: -OMEP20CA10 PO; +OMEP20CA16 PO; -REGADENOSON 0.4 MG/5 ML DISP.SYRIN. IV ONE
--- NOTE | 2019-07-02 15:44 | RAD ---
Bilateral carotid artery duplex ultrasound study compared to similar exam dated 06/25/2016 for history of carotid stenosis, left ICA stent. Technique and findings: Real-time grayscale and color and spectral Doppler evaluation of the carotid arteries is performed. The common carotid artery is patent, however there is eccentric bulky calcified atherosclerosis distally within this vessel which may extend into the proximal internal carotid artery, the extent which is not definitive based on this exam, due in part to the bulky nature and dense shadowing of this atherosclerosis. Further evaluation with CTA is recommended. The mid and distal ICA appear widely patent. Peak systolic velocity within the right common carotid artery is 46 cm/s, and within the right internal carotid artery 65 cm/s, constituting a ratio of 1.5. Highest end-diastolic velocity of the right internal carotid artery is 23 cm/s. These findings correspond to less than 50 percent stenosis, but are suspected to be spuriously low based on grayscale imaging as noted above. In the proximal left common carotid artery, there is moderate mixed calcified and soft atherosclerotic plaque which appears fairly focal. Mild plaque is seen at the carotid bulb is well. A few echogenic intimal foci in this location may be atherosclerotic calcification, or may represent a short stent corresponding to patient's history. Peak systolic velocity of the left common carotid artery is 88 cm/s, and of the left internal carotid artery 63 cm/s, constituting a ratio of less than 1. Highest end-diastolic velocity left internal carotid artery is 19 seen per second. There is antegrade flow within both vertebral arteries. IMPRESSION: 1. Bilateral internal carotid artery atherosclerosis with velocity criteria core spotting less than 50 percent stenosis in each vessel. 2. Bulky densely calcified atherosclerosis in the distal right common carotid artery possibly extending into the proximal right internal carotid artery is well. Velocity measurements at this location are not obtained due to dense shadowing and limited visualization of the vessel lumen in this location. High-grade stenosis is suspected and further evaluation with CTA of the neck should be considered for more definitive evaluation. Stenosis calculations for CT, MR and conventional angiography are based upon measurement of the distal ICA diameter in accordance with the NASCET methodology. Stenosis calculations for carotid ultrasound studies are derived from validated velocity criteria which are known to correlate with the NASCET methodology. Electronically signed by: Jerry Olivia MD (07/02/2019 3:41 PM) [id number]
== END | disposition home or self-care (01) ==
LOC: US 12:41
PROVIDERS: ATTEND Internal Medicine Cardiovascular Disease
DX: I65.23 Occlusion and stenosis of bilateral carotid arteries (principal)
CPT/HCPCS: 93880

== ENCOUNTER → 2019-07-23 | Outpatient (CLI) | payer BC, MEDICAID ==
[~2019-07-23] MED LIST changes: +AMLO5TAB10 PO; +ATOR10TA60 PO; +DOXE10CA PO; +FERR-36 PO; +OXYB10TA26 PO; +cholecalciferol PO
== END | disposition home or self-care (01) ==
LOC: LAB 13:05
PROVIDERS: ATTEND Internal Medicine Cardiovascular Disease
DX: Z11.59 Encounter for screening for other viral diseases (principal); I65.29 Occlusion and stenosis of unspecified carotid artery; R07.9 Chest pain, unspecified
CPT/HCPCS: C9803; U0003; 36415

== ENCOUNTER 2019-07-28 09:58 | Outpatient (CLI) | payer BC, MEDICAID ==
[2019-07-28] VITALS (13 sets, daily range): BP systolic 178–204; BP diastolic 77–97
[~2019-07-28] VITALS: Ht 152.4 cm; Wt 45.8 kg
[~2019-07-28 09:58] MED LIST changes: -AMLO5TAB10 PO; -ATOR10TA60 PO; -DOXE10CA PO; -FERR-36 PO; -OXYB10TA26 PO; -cholecalciferol PO
[2019-07-28 10:35] LABS: HEMATOCRIT 33.2 % (36.0-47.0); HEMOGLOBIN 11.1 g/dL (12.0-15.5); RED BLOOD COUNT 3.87 x10^6/uL (3.50-5.40); RED CELL DISTRIBUTION WIDTH 15.2 % (11.5-14.5); WHITE BLOOD COUNT 4.7 x10^3/uL (4.0-11.0)
[2019-07-28 10:39] LABS: CALCIUM 8.4 mg/dL (8.5-10.1); CREATININE 1.1 mg/dL (0.6-1.0); GFR 58.3; POTASSIUM 3.8 mmol/L (3.5-5.1)
[2019-07-28] MEDS ORDERED: cholecalciferol PO (10:44)
[2019-07-28] MEDS ORDERED: OXYB10TA26 PO (10:44)
[2019-07-28] MEDS ORDERED: ATOR10TA60 PO (10:44)
[2019-07-28] MEDS ORDERED: FERR-36 PO (10:44)
[2019-07-28] MEDS ORDERED: AMLO5TAB10 PO (10:44)
[2019-07-28] MEDS ORDERED: BACL10TA PO (10:44)
[2019-07-28] MEDS ORDERED: DOXE10CA PO (10:44)
[2019-07-28] MEDS ORDERED: CLOP75TA PO (10:44)
[2019-07-28 10:45] LABS: PROTHROMBIN TIME PATIENT 12.4 SEC (11.7-14.0)
[2019-07-28] MEDS ORDERED: IOHEXOL 300 MG/ML 100ML VIAL. ONE ×2 (10:56→12:14)
[2019-07-28] MEDS ORDERED: LIDOCAINE 1% PF 2 ML VIAL. ONE (10:56)
[2019-07-28] MEDS ORDERED: FAMOTIDINE 20 MG/2 ML VIAL IVP ONE (11:00)
[2019-07-28] MEDS ORDERED: diphenhydrAMINE 50 MG/ML VIAL IVP ONE (11:00)
[2019-07-28] MEDS ORDERED: methylPREDNISolone SOD SUCC PF 125 MG/2 ML VIAL. IV ONE (11:00)
[2019-07-28] MEDS ORDERED: methylPREDNISolone SOD SUCC PF 125 MG/2 ML VIAL. ONE (11:21)
[2019-07-28] MEDS ORDERED: diphenhydrAMINE 50 MG/ML VIAL ONE (11:22)
[2019-07-28] MEDS ORDERED: NITROGLYCERIN 200 MCG/2 ML SYRINGE FOR CATH/VASC LAB. ONE (11:22)
[2019-07-28] MEDS ORDERED: HEPARIN for IV BOLUS 10,000 UNIT/10 ML VIAL. ONE (11:22)
[2019-07-28] MEDS ORDERED: VERAPAMIL 5 MG/2 ML VIAL. ONE ×2 (11:22→13:00)
[2019-07-28] MEDS ORDERED: FAMOTIDINE 20 MG/2 ML VIAL ONE (11:22)
[2019-07-28] MEDS ORDERED: MIDAZOLAM HCL/PF 2 MG/2 ML VIAL. ONE (11:22)
[2019-07-28] MEDS ORDERED: fentaNYL PF VIAL 100 MCG/2 ML VIAL ONE (11:22)
[2019-07-28] MEDS ORDERED: LIDOCAINE 1% Multi-Dose 20 ML VIAL. ONE (11:38)
[2019-07-28] MEDS ORDERED: MIDAZOLAM HCL/PF 2 MG/2 ML VIAL. IV ONE (11:45)
[2019-07-28] MEDS ORDERED: IOHEXOL 300 MG/ML 100ML VIAL. IART ONE (11:45)
[2019-07-28] MEDS ORDERED: LIDOCAINE 1% Multi-Dose 20 ML VIAL. INJ ONE (11:45)
[2019-07-28] MEDS ORDERED: fentaNYL PF VIAL 100 MCG/2 ML VIAL IV ONE (11:45)
[2019-07-28] MEDS ORDERED: CONTRAST GIVEN. MC PRN (12:00)
[2019-07-28] MEDS ORDERED: HEPARIN for IV BOLUS 10,000 UNIT/10 ML VIAL. IV ONE (12:15)
[2019-07-28] MEDS ORDERED: ASPIRIN CHEWABLE 81 MG TABLET. PO ONE (12:30)
[2019-07-28] MEDS ORDERED: amLODIPine BESYLATE 5 MG TABLET PO ONE (12:30)
[2019-07-28] MEDS ORDERED: CLOPIDOGREL BISULFATE 75 MG TABLET PO ONE (12:30)
[2019-07-28] MEDS ORDERED: CLOPIDOGREL BISULFATE 75 MG TABLET ONE ×2 (12:48→13:00)
[2019-07-28] MEDS ORDERED: IV 1/2 NORMAL SALINE 1,000 ML IV SCH (13:06)
--- NOTE | 2019-07-28 13:06 | PDOC ---
MODERATE SEDATION ASSESSMENT RISKS/ALTERNATIVES Risks/Alternatives Risks and alternatives of this type of sedation and procedure discussed with: RISK/ALTERNATIVES: Patient H & P ON CHART H & P H & P on chart and reviewed for co-morbid conditions and appropriate labs. H&P ON CHART: Yes STATUS PREG STATUS ASSESSED: N/A MEDS/ALLERGIES REVIEWED Meds/Allergies Reviewed Medications and Allergies including time and route of recently administered narcotics and sedatives. MEDS/ALLERGIES REVIEWED: Yes ASA RATING ASA RATING: III AIRWAY ASSESSMENT Airway Assessment Airway patency, oral function limitations, presence of caps, crowns, dentures, partials, and ability to extend neck assessed. AIRWAY ASSESSMENT: Yes MALLAMPATI SCORE MALLAMPATI SCORE: II PRE-SEDATION ASSESSMENT PRE-SEDATION ASSESSMENT: Yes DIGNA RUSSO MD July 28, 2019 13:06
[2019-07-28] MEDS ORDERED: NITROGLYCERIN SUBLINGUAL 0.4 MG BOTTLE OF 25. SL PRN (13:15)
--- NOTE | 2019-07-28 13:45 | NUR ---
Received phone call from Dr Pepper re: orders for pre op. Orders entered, family notified of plan, pt notified of plan. Pt given own meds, meds from [employer] returned for credit. Face sheet faxed to number provided by Dr Pepper. ADALGISA GRAMAJO
--- NOTE | 2019-07-28 14:59 | RAD ---
Examination: VEIN MAPPING LOWER EXT BILAT History: Reason: PRE-OP CABG / Spl. Instructions: / History: Comparison/Correlation: None Findings: Bilateral lower extremity venous mapping ultrasound exam was performed. Compression imaging was performed. Right great saphenous vein Diameter within the thigh region ranges from as low as 0.2 cm and up to 0.26 cm within the superior aspect. The diameters within the calf level to the ankle range from 0.15 cm up to 0.18 cm. Right lesser saphenous vein diameters range from 0.13 cm superiorly up to 0.15 cm distally. Left great saphenous vein Diameter ranges up to 0.23 cm in the proximal thigh to as narrow as 0.18 cm at the mid thigh and popliteal level. Within the calf to ankle region, diameters range from 0.12 cm up to 0.14 cm. Left lesser saphenous vein ranges in diameter from 0.2 cm at the upper calf level to as low as 0.1 cm diameter at the distal calf level. Impression: Normal bilateral greater and lesser saphenous vein diameters. No thrombus seen on images provided. Electronically signed by: Nathan Gómez MD (07/28/2019 2:56 PM) [id number]
--- NOTE | 2019-07-28 16:02 | CARD ---
MR#: [id number] Date of Study: 07/28/2019 Ordering Physician: DIGNA RUSSO, Referring Physician: DIGNA RUSSO Tech: PATRICIA FLORES RTR APPROVED REPORT Technologist: PATRICIA FLORES RTR Nurse: Lissett Clemons R.N. Procedure(s) performed: 1. Left heart catheterization, selective coronary angiography and left ventr iculography 2. Intravascular ultrasound (IVUS) to left main coronary artery stenosis MODERATE SEDATION TIME: 96 MINUTES FLUORO TIME: 10.2 MIN DOSE: 30.9 GYCM2 CONTRAST: 172 CC OMNI 300 INDICATION The indication(s) include : unstable angina . [facility] Clinical Frailty Scale [facility] Clinical Frailty Scale: Mildly Frail Heart Failure Heart Failure: No PROCEDURE NARRATIVE After explaining the risks, benefits and alternative options, informed consent was obtained from galina ent. Patient was brought to the cardiac [facility] and her right groin was prepped and draped in the u sual fashion. 20 cc of 2% lidocaine was infiltrated into the skin and subcutaneous tissues for local anesthesia. Arterial access was obtained in the right common femoral artery and a 6 [place] bright t ip sheath was inserted. 6 [place] JL4 and 6 [place] JR4 catheters were used to perform selective angio graphy of the left and right coronary arteries. 6 Kenyan pigtail catheter was used to perform left v entriculography. Since patient was found to have left main coronary artery stenosis, we decided to i nterrogate this further with coronary intravascular ultrasound (IVUS). The left main coronary artery was engaged with a 6 Kenyan XB 3.5 guide catheter and the stenosis in the distal segment of the left main coronary artery was crossed with a 0.014 inch [employer] pro-water guidewire. A [employer] eye IV IS catheter was then advanced under fluoroscopy guidance and intravascular ultrasound was performed t o determine the severity of the left main coronary artery stenosis. Patient tolerated the procedure well. Hemostasis was achieved using manual compression. There were no immediate complications. FINDINGS 1. Hemodynamics: Elevated left ventricular end-diastolic pressure of 27 mmHg consistent with acute o n chronic diastolic heart failure. No pullback gradient across the aortic valve. 2. Left ventriculography: Akinetic posterobasal wall with ejection fraction estimated at 45%. No si gnificant mitral regurgitation seen. 3. Coronary angiography: a. The left main coronary artery arose from the left sinus of Valsalva, gave rise to the left anteri or descending and left circumflex arteries and showed calcified 70 to 80% stenosis involving the dist al segment. This was confirmed with coronary intravascular ultrasound measurements. b. The left anterior descending artery did not show any significant stenosis. c. The left circumflex artery showed widely patent previously placed stent in the obtuse marginal br anch. d. The right coronary artery showed chronic total occlusion in the proximal, mid and distal segments with reconstitution of posterior descending and posterolateral branches from left to right collatera ls. Conclusion 1. Severe three-vessel coronary disease including 70 to 80% stenosis of the left main coronary arter y confirmed by intravascular ultrasound. 2. Posterobasal wall akinesis with ejection fraction estimated at 45%. Recommendations Cardiothoracic surgery team consultation for possible coronary artery bypass surgery. Signed by : Digna Russo, Electronically Approved : 07/28/2019 16:01:53
--- NOTE | 2019-07-28 17:43 | CARD ---
MR#: [id number] Date of Study: 07/28/2019 Ordering Physician: ANDERSON WONG, Referring Physician: ANDERSON WONG, Tech: Angelita Velasquez APPROVED REPORT EXAM: Two-dimensional and M-mode echocardiogram with Doppler and color Doppler. Other Information Quality : PoorHR: 80bpm Technically limited study due to INDICATION Cardiac Disease: CAD 2D DIMENSIONS Left Atrium(2D)3.7 (1.6-4.0cm)IVSd1.2 (0.7-1.1cm) Aortic Root(2D)3.2 (2.0-3.7cm)LVDd4.7 (3.9-5.9cm) LVOT Diameter2.3 (1.8-2.4cm)PWd1.2 (0.7-1.1cm) LVDs3.3 (2.5-4.0cm)FS (%) 30.6 % SV59.9 mlLVEF(%)58.1 (>50%) Aortic Valve AoV Peak Can.116.3cm/sAoV VTI18.9cm AO Peak GR.5.4mmHgLVOT VTI 16.99cm AO Mean GR.2mmHg Mitral Valve MV E Xxilbvpa35.2cm/sMV E Peak Gr.3mmHg MV DECEL [id number] A Ypfjzpgu62.8cm/s MV E Mean Gr.1mmHgE/A Ratio0.6 TDI Lateral E' P. V5.15cm/sMedial E' P. V4.44cm/s E/Lateral E'8.4E/Medial E'9.7 LEFT VENTRICLE The left ventricle is normal size. There is mild concentric left ventricular hypertrophy. The left ve ntricular systolic function is mildly impaired. The Ejection Fraction is 45-50%. Transmitral Doppler flow pattern is Grade I-abnormal relaxation pattern. RIGHT VENTRICLE The right ventricle is not well visualized. The right ventricle is borderline hypertrophied. The righ t ventricular systolic function is normal. ATRIA The left atrium size is normal. The interatrial septum is intact with no evidence for an atrial septa l defect or patent foramen ovale as noted on 2-D or Doppler imaging. AORTIC VALVE The aortic valve is thickened but opens well. Doppler and Color Flow revealed no significant aortic r egurgitation. There is no significant aortic valvular stenosis. MITRAL VALVE The mitral valve is thickened but opens well. There is no evidence of mitral valve prolapse. There is no mitral valve stenosis. Evaluation of regurgitation is inadequate. TRICUSPID VALVE The tricuspid valve is normal in structure and function. Doppler and Color Flow revealed no tricuspid valve regurgitation noted. There is no tricuspid valve stenosis. PULMONIC VALVE The pulmonic valve is not well visualized. Doppler and Color Flow revealed no pulmonic valvular regur gitation. GREAT VESSELS The aortic root is normal in size. The IVC was not visualized. PERICARDIAL EFFUSION There is no evidence of significant pericardial effusion. Critical Notification Critical Value: No <Conclusion> Technically difficult study. Valves not well visualized. The left ventricular systolic function is mildly impaired. The Ejection Fraction is 45-50%. Transmitral Doppler flow pattern is Grade I-abnormal relaxation pattern. There is no evidence of significant pericardial effusion. Signed by : Mike Cruz, Electronically Approved : 07/28/2019 17:42:30
--- NOTE | 2019-07-28 17:47 | NUR ---
Discharge Note: AMINA PAN Discharge instructions and discharge home medications reviewed with Patient and a copy given. All questions have been answered and understanding verbalized. Groin site remains dry and intact, able to tolerate PO, ambulatory with steady gait. Reinforced stopping Plavix and aspirin until told to restart by Dr Pepper. The following instructions and handouts were given: groin site care, sedation, coronary artery bypass surgery Discontinued lines and drains: Peripheral IV intact. Patient discharged to Home or Self Care with Family Member via Wheelchair ADALGISA RN Addendum: 07/28/19 at 1750 by NAMRATA CHAMBERS RN Amended: Links added.
== END 2019-07-28 17:45 | disposition home or self-care (01) ==
LOC: CCL 09:58
PROVIDERS: ATTEND Internal Medicine Cardiovascular Disease
DX: I25.110 Atherosclerotic heart disease of native coronary artery with unstable angina pectoris (principal); I34.0 Nonrheumatic mitral (valve) insufficiency; I10 Essential (primary) hypertension; E78.00 Pure hypercholesterolemia, unspecified; J44.9 Chronic obstructive pulmonary disease, unspecified; K21.9 Gastro-esophageal reflux disease without esophagitis; M19.90 Unspecified osteoarthritis, unspecified site; Z87.01 Personal history of pneumonia (recurrent); Z86.010 Personal history of colon polyps; Z85.038 Personal history of other malignant neoplasm of large intestine; F17.210 Nicotine dependence, cigarettes, uncomplicated; Z90.49 Acquired absence of other specified parts of digestive tract; Z90.710 Acquired absence of both cervix and uterus; Z95.5 Presence of coronary angioplasty implant and graft; Z96.641 Presence of right artificial hip joint; Z98.890 Other specified postprocedural states
CPT/HCPCS: 36415; 80048; 85027; 85610; 87641; 92978; 93306; 93458; 93970; C1753; C1769; C1887; C1892; C1894; J1200; J1644; J2250; J2930; J3010; J3490; Q9967; 37252; 99152; 99153